=== PATIENT | female | born 1935 | race Caucasian/White ===

== ENCOUNTER 2018-01-20 09:57 | Inpatient (IN) | payer OTHER ==
[~2018-01-20] VITALS: Ht 160 cm; Wt 74.2 kg
[~2018-01-20 09:57] MED LIST: ASPIRIN EC325 MG PO; CARVEDILOL12.5 MG PO; CARVEDILOL3.125 MG PO; COLACE100 MG PO; ECOTRIN81 MG PO; FUROSEMIDE20 MG PO; HYDROXYCHLOROQ200 M1 PO; LISINOPRIL AND1 TA1 PO; LISINOPRIL20 MG PO; OMEPRAZOLE40 MG PO; PERCOCET 325 MG1 TA2 PO; PREDNISONE 20MG20 MG PO; SIMVASTATIN20 MG PO; TRAMADOL HCL50 MG PO; TYLENOL PM 5001 CAP PO; VITAMIN B122500 MCG PO
--- NOTE | 2018-01-20 10:37 | ED GENERAL ADULT ---
History of Present Illness General Chief Complaint: General Adult Stated Complaint: LOWER BACK PAIN, SOB, HEART RACING Source: patient, family Exam Limitations: poor historian Vital Signs & Intake/Output Vital Signs & Intake/Output Vital Signs Date Time Temp Pulse Resp B/P B/P Pulse O2 O2 Flow FiO2 Mean Ox Delivery Rate 01/22 1642 97.6 64 18 126/70 01/22 1446 97.6 64 18 126/70 95 01/22 0956 Room Air Room Air 01/22 0857 68 140/70 01/22 0800 94 Room Air 01/22 0707 97.9 64 20 140/70 94 Room Air ED Intake and Output 01/23 0000 01/22 1200 Intake Total 600 100 Output Total 300 500 Balance 300 -400 Intake, Oral 600 100 Number 1 Bowel Movements Output, Urine 300 500 Allergies Coded Allergies: Influenza Virus Vaccines (NO FLU SHOT DUE TO SULFA ALLERGY PER PT 01/15/16) Sulfa (Sulfonamide Antibiotics) (HIVES 10/11/17) Triage Note: PT TO ED C/O UPPER BACK PAIN X 1 WEEK. STATES WORSE THE LAST FEW DAYS. DENIES ANY CURRENT C/P. DENIES ANY INJURY. EKG DONE. Triage Nurses Notes Reviewed? yes Onset: Abrupt Duration: day(s): Timing: recent history HPI: 01/20/18 11:30 AM 82-year-old female presents to the emergency department complaining of severe low back pain over the past 3 days. She also admits to twinges of chest discomfort and difficulty breathing. Currently she is in severe low back pain, it is nonradiating, it is worse with motion. No abdominal pain. No fever. (Randolph Horner DO) Reconcile Medications Aspirin (Aspirin*) 81 MG TAB.CHEW 81 MG PO DAILY blood thinner Calcium Carbonate 500 MG CALCIUM (1,250 MG) TABLET 600 MG PO BID supplement Carvedilol 12.5 MG TABLET 1 TAB PO BID CHF (Reported) Cyclobenzaprine HCl 5 MG TABLET 1 TAB PO TIDPRN BACK PAIN (Reported) Docusate Sodium (Colace) 100 MG CAPSULE 1 CAP PO BID constipation (Reported) Ergocalciferol (Vitamin D2) (Vitamin D2) 50,000 UNIT CAPSULE 1 CAP PO QW supplement Levothyroxine Sodium (Synthroid) 50 MCG TABLET 1 TAB PO DAILY HYPOTHYROIDISM (Reported) Omeprazole 40 MG CAPSULE.DR 1 CAP PO DAILY GERD (Reported) Oxycodone HCl/Acetaminophen (Percocet 5-325 MG Tablet) 5 MG-325 MG TABLET 1 TAB PO TID PRN moderate pain Sacubitril/Valsartan (Entresto 49 MG-51 MG Tablet) 49 MG-51 MG TABLET 1 TAB PO BID CHF (Reported) Simvastatin (Zocor*) 20 MG TABLET 1 TAB PO QPM HYPERLIPIDEMIA (Reported) (Fredy URIBE,Amber) Past History Travel History Traveled to [place] past 21 day No Medical History Any Pertinent Medical History? 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 No (Randolph Horner DO) Review of Systems Review of Systems Constitutional: Denies: fever. EENTM: Reports: no symptoms. Respiratory: Reports: see HPI. Cardiovascular: Reports: see HPI. GI: Denies: abdominal pain. Genitourinary: Reports: no symptoms. Musculoskeletal: Reports: see HPI, back pain. Skin: Denies: rash. Neurological/Psychological: Reports: no symptoms. Hematologic/Endocrine: Reports: no symptoms. Immunologic/Allergic: Reports: no symptoms. (Randolph Horner DO) Physical Exam Physical Exam General Appearance: alert, awake, anxious, moderate distress Head: atraumatic, normal appearance Eyes: Bilateral: normal appearance, PERRL, EOMI. Ears, Nose, Throat: normal pharynx, normal ENT inspection Neck: normal inspection, supple, full range of motion Respiratory: normal breath sounds, chest non-tender, no respiratory distress Cardiovascular: regular rate/rhythm Peripheral Pulses: 4+ radial (R), 4+ radial (L) Gastrointestinal: soft, non-tender Back: normal inspection (states), tenderness over L4-L5 and L5-S1. Severe! Extremities: pedal edema Neurologic/Psych: no motor/sensory deficits, awake, alert, oriented x 3 Skin: intact, normal color, warm/dry Core Measures ACS in differential dx? Yes No ASA d/t pending work up CVA/TIA Diagnosis: No Sepsis Present: No Sepsis Focused Exam Completed? No (Randolph Horner DO) Progress Differential Diagnoses I considered the following diagnoses in my evaluation of the patient: [Pulmonary embolism, CHF, pneumonia, compression fracture, disc herniation, aortic dissection] Plan of Care: Orders Procedure Date/time Status Therapeutic Activities 01/22 UNK Complete Gait Training 01/22 UNK Complete Discharge Patient 01/22 UNK Active Laboratory Tests 01/22/18 0950: RBC 4.27, MCV 85.2, MCH 29.0, MCHC 34.0, RDW 13.1, MPV 9.0, Gran % 70.7, Lymphocytes % 19.8 L, Monocytes % 8.3, Eosinophils % 0.9, Basophils % 0.3, Absolute Granulocytes 4.0, Absolute Lymphocytes 1.1 L, Absolute Monocytes 0.5, Absolute Eosinophils 0.1, Absolute Basophils 0 01/22/18 0620: Anion Gap 8, Estimated GFR > 60, BUN/Creatinine Ratio 27.1 H 11:29 AM PATIETN SIGNED OUT TO ME BY DR HORNER PENDING LABS, D-DIMER, CT LUMBAR SPINE (Fredy URIBE,Amber) Initial ED EKG: NSR, nonspecific ST T wave chg, RBBB Prior EKG: changed (NON-SPECIFIC) (Randolph Horner DO) Diagnostic Imaging: Viewed by Me: CT Scan. Discussed w/RAD: CT Scan. Radiology Impression: PATIENT: MARIA BRIGHT PRESENT AGE: 82 PATIENT ACCOUNT NO: [id number] : 37 LOCATION: [facility] ORDERING PHYSICIAN: Randolph Horner DO SERVICE DATE: 01/20/18 EXAM TYPE: CAT - CT LUMB SPINE WO IV CONTRAST EXAMINATION: CT LUMBAR SPINE WITHOUT CONTRAST CLINICAL INFORMATION: Back pain. COMPARISON: CT performed 04/29/2016. TECHNIQUE: Helical non-contrast CT images were obtained through the lumbar spine and 1.25 and 2.5 mm axial reconstructions were reviewed along with sagittal and coronal MPRs. DLP: 943 mGy-cm FINDINGS: There is no acute fracture or subluxation. Slight dextroscoliosis of the lumbar spine centered at L3. Vertebral body heights are maintained. There is diffuse disc space narrowing with vacuum disc phenomenon throughout the lumbar spine. Diffuse endplate osteophytes are also present. Endplate sclerosis at L3-L4 is unchanged. Diffuse facet arthropathy. The sacrum is intact. The sacroiliac joints appear intact. Aortic calcifications noted. Retroaortic left renal vein. Colonic diverticulosis noted. SPINAL LEVELS: Evaluation of the spinal levels is limited on CT. There is severe spinal canal narrowing seen at the L3-L4 level associated with a disc bulge, facet arthropathy, and ligamentum flavum hypertrophy. There is also narrowing of the neural foramina, particularly on the left. This is likely similar to prior. There is also moderate spinal canal narrowing at the L4-L5 level. Mild neuroforaminal narrowing, particularly on the left. IMPRESSION: No acute osseous abnormality. Moderate to severe multilevel degenerative changes of the lumbar spine which are likely similar to prior. Evaluation of the disc levels is limited on CT, but again noted is severe spinal canal narrowing at the L3-L4 level with neuroforaminal narrowing, particularly on the left. DICTATED BY : Bob Aj MD DATE/TIME DICTATED:01/20/181235 SUPERINTENDENT SERVICE: TORY DATE/TIME TRANSCRIBED:01/20/181235 CONFIDENTIAL, DO NOT COPY WITHOUT APPROPRIATE AUTHORIZATION. <Electronically signed in Other Vendor System> SIGNED BY: Bob Aj MD 01/20/18 1243, PATIENT: MARIA BRIGHT PRESENT AGE: 82 PATIENT ACCOUNT NO: [id number] : 37 LOCATION: [facility] ORDERING PHYSICIAN: Amber Daniel MD SERVICE DATE: 01/20/18 EXAM TYPE: CAT - CT ABD & PELVIS W IV CONTRAST EXAMINATION: CT ABDOMEN AND PELVIS WITH CONTRAST CLINICAL INFORMATION: Abdominal pain, back pain. COMPARISON: 09/04/2014. CT lumbar spine from today. TECHNIQUE: Multidetector volumetric imaging was performed of the abdomen and pelvis following IV administration of 94 mL of Optiray 320 intravenous contrast. Sagittal and coronal reformatted images were obtained on the technologist's workstation. DLP: 885.33 mGy-cm FINDINGS: LUNG BASES: The visualized lung bases are unremarkable. LIVER, GALLBLADDER, AND BILIARY TREE: The liver is normal in size, shape, and attenuation. No focal hepatic lesion or biliary ductal dilatation is present. The gallbladder is not identified. This was not identified on the prior study of 2013 as well. This may be due to nondistention or surgical removal. CBD measures 1.3 cm proximally, tapering more distally. This previously measured 1.1 cm proximally by today's measurements. No radiodense choledocholithiasis is seen. PANCREAS: No discrete pancreatic lesion is seen. No inflammatory changes. No dilated pancreatic duct is seen. SPLEEN: Unremarkable. ADRENAL GLANDS: Stable 1.2 cm indeterminate left adrenal nodule. Right adrenal gland appears unremarkable. KIDNEYS AND URETERS: Multiple hypodense lesions in the bilateral kidneys. Majority of the lesions are too small to characterize by CT, overall stable from previous. There is a lesion in the midpole left kidney measuring 1.4 cm, increased in size as compared to previous, [place] 34, indeterminate. The 1 cm lesion in the lower pole left kidney, indeterminate, stable from previous. No renal calculi. No hydronephrosis. BLADDER: Unremarkable. GASTROINTESTINAL TRACT: There is gas and stool throughout the nondistended large bowel. Colonic diverticulosis present. No evidence of acute inflammatory changes to suggest colitis or diverticulitis. The stomach is underdistended, with luminal contents. Normal caliber small bowel loops. No evidence of bowel obstruction. The appendix is not identified. No pericecal inflammatory changes are seen. No free fluid or free air. ABDOMINAL WALL: No significant hernia is appreciated. LYMPH NODES: No pathologically enlarged lymph nodes identified in the abdomen or pelvis. VASCULAR: Abdominal aorta is of normal caliber. There is mild to moderate atherosclerotic vascular calcification present in the aorta and iliac vessels. Retrocaval aortic vein. PELVIC VISCERA: No abnormal findings. The uterus is not identified, atrophic or surgically absent. OSSEOUS STRUCTURES: Multilevel degenerative changes of the spine, better evaluated on the CT lumbar spine obtained today. Bilateral hip joint degeneration. Degenerative changes in bilateral SI joints. Mild dextroconvex scoliosis of the lumbar spine. No acute fractures identified. No suspicious lytic or blastic lesions are seen. IMPRESSION: 1. CBD is dilated measuring 1.3 cm proximally, tapering distally. No evidence of choledocholithiasis. The CBD previously measured 1.1 cm on the prior study of 2013. The gallbladder is not identified. The CBD dilatation could be related to prior cholecystectomy, if the gallbladder has been previously surgically removed. Correlate with surgical history. However, given the interval increase in size as compared to previous, recommend correlation with blood work, bilirubin levels. Further evaluation with MRCP as clinically warranted. 2. Stable indeterminate left adrenal nodule. 3. Multiple hypodense lesions in the bilateral kidneys, majority of which are too small to characterize, similar in size as compared to previous, probably reflecting cysts. There is a 1.4 cm hypodense lesion in the midpole left kidney, increased in size as compared to previous, which is indeterminate by CT measurements. Further characterization with ultrasound as clinically warranted. 4. Diverticulosis. No evidence of diverticulitis. 5. No acute findings otherwise identified in the abdomen or pelvis. DICTATED BY: Gadiel Grewal MD DATE/TIME DICTATED:01/20/181408 SUPERINTENDENT SERVICE:TORY DATE/TIME TRANSCRIBED:01/20/181408 CONFIDENTIAL, DO NOT COPY WITHOUT APPROPRIATE AUTHORIZATION. <Electronically signed in Other Vendor System> SIGNED BY: Gadiel Grewal MD 01/20/18 1453 CXR Impression: PATIENT: MARIA BRIGHT PRESENT AGE: 82 PATIENT ACCOUNT NO: [id number] : 37 LOCATION: [facility] ORDERING PHYSICIAN: Xander YAO SERVICE DATE: 01/20/18 EXAM TYPE: RAD - XRY-PORTABLE CHEST XRAY EXAMINATION: XR PORTABLE CHEST CLINICAL INFORMATION: Shortness of breath. COMPARISON: 10/26/2015 TECHNIQUE: Portable frontal view of the chest was obtained. FINDINGS: Cardiac lead overlies the chest. The lungs are well expanded. There is no focal consolidation, edema, or effusion. No pneumothorax. The cardiomediastinal silhouette is within normal limits of size with a tortuous aorta. No acute osseous abnormality. IMPRESSION: No acute pulmonary findings. DICTATED BY: Jean Marie URIBE,Bob DATE/TIME DICTATED:01/20/181114 SUPERINTENDENT SERVICE:TORY DATE/TIME TRANSCRIBED:01/20/181114 CONFIDENTIAL, DO NOT COPY WITHOUT APPROPRIATE AUTHORIZATION. <Electronically signed in Other Vendor System> SIGNED BY: Jean Marie URIBE,Bob 01/20/18 1119 (Fredy URIBE,Amber) Departure Departure Disposition: STILL A PATIENT Condition: Stable Referrals: Ciro URIBE,Burke Hastings (PCP/Family) Departure Forms: Customer Survey General Discharge Information Comments 01/20/18 11:30 AM The patient was signed out to Dr. Daniel at 11:30 AM. (Randolph Horner DO) Departure Clinical Impression Primary Impression: Hypocalcemia Secondary Impressions: Acute low back pain, Chest pain at rest, Hypokalemia Prescriptions: Current Visit Scripts Aspirin (Aspirin*) 81 MG PO DAILY #30 TAB Calcium Carbonate 600 MG PO BID #60 TAB Ergocalciferol (Vitamin D2) (Vitamin D2) 1 CAP PO QW #7 CAP Oxycodone HCl/Acetaminophen (Percocet 5-325 MG Tablet) 1 TAB PO TID PRN moderate pain #15 TAB Admission Note Spoke With: Joshua URIBE,Chay (Amber Daniel MD) Critical Care Note Critical Care Note Critical Care Time: 30-74 min (Randolph Horner DO)
--- NOTE | 2018-01-20 11:19 | RADIOLOGY REPORT ---
EXAMINATION: XR PORTABLE CHEST CLINICAL INFORMATION: Shortness of breath. COMPARISON: 10/26/2015 TECHNIQUE: Portable frontal view of the chest was obtained. FINDINGS: Cardiac lead overlies the chest. The lungs are well expanded. There is no focal consolidation, edema, or effusion. No pneumothorax. The cardiomediastinal silhouette is within normal limits of size with a tortuous aorta. No acute osseous abnormality. IMPRESSION: No acute pulmonary findings.
[2018-01-20 11:45] LABS: ABSOLUTE BASOPHIL COUNT 0 /CUMM (0.0-0.2); ABSOLUTE EOSINOPHIL COUNT 0 /CUMM (0.0-0.7); ABSOLUTE GRANULOCYTE CT 5.5 /CUMM (1.4-6.5); ABSOLUTE LYMPH COUNT 1.4 /CUMM (1.2-3.4); ABSOLUTE MONOCYTE COUNT 0.5 /CUMM (0.10-0.60); BASOPHIL % 0 % (0.0-2.0); EOSINOPHIL % 0.6 % (0-5); GRANULOCYTE % 74.2 % (42.2-75.2); HEMATOCRIT 37.6 % (37-47); MEAN CORPUSCULAR HGB 28.9 PG (27.0-31.0); MEAN CORPUSCULAR HGB CONC 34.1 G/DL (33.0-37.0); MEAN CORPUSCULAR VOLUME 84.8 FL (81.0-99.0); MEAN PLATELET VOLUME 8.8 FL (7.4-10.4); PLATELET COUNT 205 /CUMM (130-400); RBC DISTRIBUTION WIDTH 13.1 % (11.5-14.5); RED BLOOD CELL CT 4.44 /CUMM (4.20-5.40); WHITE BLOOD CELL COUNT 7.4 /CUMM (4.8-10.8)
--- NOTE | 2018-01-20 12:43 | CT SCAN REPORT ---
EXAMINATION: CT LUMBAR SPINE WITHOUT CONTRAST CLINICAL INFORMATION: Back pain. COMPARISON: CT performed 04/29/2016. TECHNIQUE: Helical non-contrast CT images were obtained through the lumbar spine and 1.25 and 2.5 mm axial reconstructions were reviewed along with sagittal and coronal MPRs. DLP: 943 mGy-cm FINDINGS: There is no acute fracture or subluxation. Slight dextroscoliosis of the lumbar spine centered at L3. Vertebral body heights are maintained. There is diffuse disc space narrowing with vacuum disc phenomenon throughout the lumbar spine. Diffuse endplate osteophytes are also present. Endplate sclerosis at L3-L4 is unchanged. Diffuse facet arthropathy. The sacrum is intact. The sacroiliac joints appear intact. Aortic calcifications noted. Retroaortic left renal vein. Colonic diverticulosis noted. SPINAL LEVELS: Evaluation of the spinal levels is limited on CT. There is severe spinal canal narrowing seen at the L3-L4 level associated with a disc bulge, facet arthropathy, and ligamentum flavum hypertrophy. There is also narrowing of the neural foramina, particularly on the left. This is likely similar to prior. There is also moderate spinal canal narrowing at the L4-L5 level. Mild neuroforaminal narrowing, particularly on the left. IMPRESSION: No acute osseous abnormality. Moderate to severe multilevel degenerative changes of the lumbar spine which are likely similar to prior. Evaluation of the disc levels is limited on CT, but again noted is severe spinal canal narrowing at the L3-L4 level with neuroforaminal narrowing, particularly on the left.
--- NOTE | 2018-01-20 14:26 | History & Physical ---
Kim URIBE,Anjana 01/20/18 1426: General Information and HPI MD Statement: I have seen and personally examined MARIA BRIGHT and documented this H&P. The patient is a 82 year old F who presented with a patient stated chief complaint of [chest pain]. Source of Information: patient, old records Exam Limitations: poor historian History of Present Illness: 82 years old female with past medical history of nonischemic cardiomyopathy, bifascicular block, systolic compensated CHF, hypertension, thyroid cancer status post hemithyroidectomy , gastroesophageal reflux disease, spinal stenosis and associated chronic lower back pain/neuropathy who presented complaining of to the emergency department complaining of severe right sided lower back pain for which the patient used to take tramadol which was initially helping with her pain however she reports that the pain got progressively worse over the past 3 days and is less responding to the pain meds. The patient has long history of chronic low back pain for which she was admitted back in 2016. Patient also reports that in the ED she started experiencing chest pain 10/10 in severity which was burning epigastric and radiates to her mid back, patient received IV morphine which caused the pain to decrease to 8/10. Patient reports that she had intermittent chest pain over the past few month for which she saw her steel placer Dr. Swift and he advised her to relax and to come to the ED if it gets progressively worse Patient also reports exertional shortness of breath when she walks 56 steps. In addition she reports lightheadedness which lasted 34 minutes this morning which improved when she sat down. She denies any fever, chills, nausea, vomiting, diarrhea or constipation. She also denies any fecal or urinary incontinence. The patient is dependent on her for her activities of daily living due to bilateral neuropathy in her upper extremity up to the level of shoulder. She uses a walker to ambulate Patient was admitted back on 04/26 for chest pain and back pain, patient was found to have PVCs and after discharge she was following up with Dr. Link for possible AICD placement however she was started on Entresto and didn't need AICD as per the patient, will get the records from Dr. Link. Allergies/Medications Allergies: Coded Allergies: Influenza Virus Vaccines (NO FLU SHOT DUE TO SULFA ALLERGY PER PT 01/15/16) Sulfa (Sulfonamide Antibiotics) (HIVES 10/11/17) Past History Travel History Traveled to [place] past 21 day No Medical History Neurological: NEUROPATHY HANDS EENT: NONE Cardiovascular: cardiomyopathy, CHF, hypertension, BRADYCARDIA "IRREGULAR RHYTHM ", bifascicular block Respiratory: COPD Gastrointestinal: GERD Hepatic: NONE Renal: NONE Musculoskeletal: OSTEROARTHRITIS DEGENERATIVE DISC DISEASE Psychiatric: NONE Endocrine: THYROIDECTOMY Blood Disorders: NONE Cancer(s): thyroid cancer PULMONARY FUNCTION TECHNOLOGIST/Reproductive: NONE History of MRSA: No History of VRE: No History of CDIFF: No Surgical History Surgical History: appendectomy, cholecystectomy, , knee replacement ( RIGHT), right thyroid lobe and isthmus ectomy NEURO OPERATION 194 Past Family/Social History Psychosocial History Services at Home: None ETOH Use: denies use Illicit Drug Use: denies illicit drug use Review of Systems Review of Systems Constitutional: Denies: chills, diaphoresis, fever, malaise, weakness. Cardiovascular: Reports: chest pain. Denies: edema, orthopena, palpitations, peripheral edema, syncope. Respiratory: Reports: short of breath. Denies: cough, hemoptysis, orthopnea, sputum production, stridor, wheezing. GI: Reports: bloating. Denies: constipation, diarrhea, distention, bowel incontinence, melena, nausea. Genitourinary: Denies: no symptoms. Musculoskeletal: Reports: back pain, joint pain, muscle pain. Skin: Denies: no symptoms. Neurological/Psychological: Denies: no symptoms. Hematologic/Endocrine: Denies: no symptoms. Immunologic/Allergic: Denies: no symptoms. Exam & Diagnostic Data Last 24 Hrs of Vital Signs/I&O Vital Signs Date Time Temp Pulse Resp B/P B/P Pulse O2 O2 Flow FiO2 Mean Ox Delivery Rate 01/20 1436 97.0 88 18 156/90 96 Room Air 01/20 1400 97.0 68 120/70 01/20 1247 97.8 66 20 138/90 96 Room Air 01/20 1008 98.0 58 20 147/78 95 Room Air Intake & Output 01/20 1600 01/20 0800 01/20 0000 Intake Total Output Total Balance Patient 160 lb Weight Weight Reported by Patient Measurement Method Physical Exam General Appearance Alert, Oriented X3, Cooperative, No Acute Distress HEENT Atraumatic, PERRLA, EOMI, Mucous Membr. moist/pink Neck Supple, No JVD Cardiovascular Normal S1, Normal S2 Lungs Clear to Auscultation Abdomen Normal Bowel Sounds, Soft, No Tenderness Neurological Normal Speech, Strength at 5/5 X4 Ext, Normal Tone, Sensation Intact, Cranial Nerves 3-12 NL Extremities No Clubbing, No Cyanosis, No Edema Last 24 Hrs of Labs/Gray: Laboratory Tests 01/20/18 1350: Troponin I 0.02 01/20/18 1125: Anion Gap 6, Estimated GFR > 60, BUN/Creatinine Ratio 38.0 H, Glucose 79, Calcium 6.7 L, Total Bilirubin 0.3, AST 8 L, ALT 17, Alkaline Phosphatase 53, Troponin I < 0.01, Kbn-V-Vjfezwurzca Pept 865 H, Total Protein 4.4 L, Albumin 2.3 L, Globulin 2.1, Albumin/Globulin Ratio 1.1, D-Dimer High Sensitivty 268 H , CBC w Diff NO MAN DIFF REQ, RBC 4.44, MCV 84.8, MCH 28.9, MCHC 34.1, RDW 13.1, MPV 8.8, Gran % 74.2, Lymphocytes % 19.0 L, Monocytes % 6.2, Eosinophils % 0.6, Basophils % 0, Absolute Granulocytes 5.5, Absolute Lymphocytes 1.4, Absolute Monocytes 0.5, Absolute Eosinophils 0, Absolute Basophils 0 Diagnostic Data EKG Results 59, sinus rhythm, right bundle branch block, QRS 160, QTc 476, no significant ST CXR Results No acute changes Other Results CT abdomen and pelvis: 1. CBD is dilated measuring 1.3 cm proximally, tapering distally. No evidence of choledocholithiasis. The CBD previously measured 1.1 cm on the prior study of 2013. The gallbladder is not identified. The CBD dilatation could be related to prior cholecystectomy, if the gallbladder has been previously surgically removed. Correlate with surgical history. However, given the interval increase in size as compared to previous, recommend correlation with blood work, bilirubin levels. Further evaluation with MRCP as clinically warranted. 2. Stable indeterminate left adrenal nodule. 3. Multiple hypodense lesions in the bilateral kidneys, majority of which are too small to characterize, similar in size as compared to previous, probably reflecting cysts. There is a 1.4 cm hypodense lesion in the midpole left kidney, increased in size as compared to previous, which is indeterminate by CT measurements. Further characterization with ultrasound as clinically warranted 4. Diverticulosis. No evidence of diverticulitis. 5. No acute findings otherwise identified in the abdomen or pelvis. CT lumbar spine: No acute osseous abnormality. Moderate to severe multilevel degenerative changes of the lumbar spine which are likely similar to prior. Evaluation of the disc levels is limited on CT, but again noted is severe spinal canal narrowing at the L3-L4 level with neuroforaminal narrowing, particularly on the left. Assessment/Plan Assessment: 82 years old female with past medical history of nonischemic cardiomyopathy, bifascicular block, systolic compensated CHF, hypertension, thyroid cancer status post hemithyroidectomy (not on any medications), gastroesophageal reflux disease, spinal stenosis and associated chronic lower back pain/neuropathy who presented complaining of to the emergency department complaining of severe right sided lower back pain for which the patient used to take tramadol which was initially helping with her pain however she reports that the pain got progressively worse over the past 3 days. In addition she endorses chest pain 8/10 in severity which did not improve with IV morphine, given her cardiac history that the chest pain raise concern for ACS Vital signs on admission: Blood pressure 147/78, pulse 58, temperature 98, respiratory 20, pulse ox 95 on room air Labs on admission: CBCT was normal with WBC 7.4, hemoglobin 12.8, hematocrit 37.6, platelet 205, sodium 140, potassium 3.1, BUN 19, creatinine 0.5, Pro- BNP 865, d-dimer 268, Problem list: Chronic progressive back pain, bilateral hip pain most likely due to osteo- arthritis angina Right bundle branch block Abdominal pain Hypocalcemia/ mild hypokalemia History of hypertension History of hyperlipidemia History of nonischemic cardiomyopathy Plan: Admit to telemetry floor Rule out ACS with serial troponins and EKG Cardiology consult appreciated Continue home dose of carvedilol 12.5 p.o. twice daily Pain controlled with morphine, Percocet, Tylenol Flexeril 5 mg p.o. 3 times daily as needed for pain Continue home dose of omeprazole 40 mg p.o. daily Levothyroxine 50 mcg daily Start calcium and vitamin D supplement Close monitoring of I's and O's Close monitoring of vital signs Close monitoring of BEP Monitor electrolytes and replete accordingly If abdominal pain persist we will consider GI consultation PT evaluation Patient is full code DVT prophylaxis with subcutaneous heparin Heart healthy diet As Ranked By This Provider Problem List: 1. Chest pain 2. Back pain Core Measures/Misc (07/28) Acute Coronary Syndrome ACS Diagnosis: No Last Known EF % 35 Congestive Heart Failure Congestive Heart Failure Diagnosis No Cerebrovascular Accident CVA/TIA Diagnosis: No VTE (View Protocol) VTE Risk Factors Age>40 No Mechanical VTE Prophylaxis d/t N/A MechProphylax Ordered No VTE Pharm Prophylaxis d/t NA PharmProphylax ordered Sepsis (View protocol) Sepsis Present: No Ngoc Sommers MD 01/20/18 1435: General Information and HPI Allergies/Medications Home Med list Aspirin (Aspirin*) 81 MG TAB.CHEW 81 MG PO DAILY blood thinner Calcium Carbonate 500 MG CALCIUM (1,250 MG) TABLET 600 MG PO BID supplement Carvedilol 12.5 MG TABLET 1 TAB PO BID CHF (Reported) Cyclobenzaprine HCl 5 MG TABLET 1 TAB PO TIDPRN BACK PAIN (Reported) Docusate Sodium (Colace) 100 MG CAPSULE 1 CAP PO BID constipation (Reported) Ergocalciferol (Vitamin D2) (Vitamin D2) 50,000 UNIT CAPSULE 1 CAP PO QW supplement Levothyroxine Sodium (Synthroid) 50 MCG TABLET 1 TAB PO DAILY HYPOTHYROIDISM (Reported) Omeprazole 40 MG CAPSULE.DR 1 CAP PO DAILY GERD (Reported) Oxycodone HCl/Acetaminophen (Percocet 5-325 MG Tablet) 5 MG-325 MG TABLET 1 TAB PO TID PRN moderate pain Sacubitril/Valsartan (Entresto 49 MG-51 MG Tablet) 49 MG-51 MG TABLET 1 TAB PO BID CHF (Reported) Simvastatin (Zocor*) 20 MG TABLET 1 TAB PO QPM HYPERLIPIDEMIA (Reported) Resident Review Statement Resident Statement: examined this patient, discussed with summer internship, agreed with summer internship Other Findings: Patient is an 82-year-old female presented with chief complaints of gradually progressive right-sided back pain. According to the patient is at baseline she always gets the pain in her back and have difficulty in getting out of the bed. She uses tramadol as a baseline. Since last 7 days the back pain has been worse and tramadol is not effective. In the morning she had severe blackening in front of her eyes along with dizziness secondary to the pain so she came here for further evaluation and management. When she came into the emergency department she started having pain in her belly more in the right upper part of the abdomen. The pain medication given in the ED was not helpful. She denies any nausea, vomiting, chest pain, constipation, diarrhea, urinary incontinence, incontinence of stool, radiation of pain in both of the legs, trauma, fall. Of note she always gets short of breath after walking 4 or 5 steps.She was recently evaluated by Dr. Rich Swift and all the cardiac workup was normal. She followed Dr. Link, and was started on Entresto since last 1 year. 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 Blood workup -WBC 7.4, hemoglobin 12.8, hematocrit 37.6, platelet count 205, sodium 140, potassium 3.1, chloride 112, carbon x-ray 21, anion gap 6, BUN 9, creatinine 0.5, GFR 60, glucose 79, serum calcium 6.7(corrected calcium 8.1), total bilirubin 0.8, AST 8, ALT 17, alkaline phosphatase 53, troponin I 0.01, 0.02, proBNP 865, albumin 2.3, d-dimer 268. Chest x-ray -no any cardiopulmonary abnormality CT of the lumbar spine -severe spinal canal narrowing at the L3-L4 level with neuroforaminal narrowing, particularly on the left. CT abdomen pelvis - 1. CBD is dilated measuring 1.3 cm proximally, tapering distally(previously measured 1.1 cm 2013). No evidence of choledocholithiasis. 2. Stable indeterminate left adrenal nodule. 3. Multiple hypodense lesions in the bilateral kidneys, probably reflecting cysts. There is a 1.4 cm hypodense lesion in the midpole left kidney, increased in size as compared to previous, which is indeterminate by CT measurements. Further characterization with ultrasound as clinically warranted. 4. Diverticulosis. No evidence of diverticulitis. Assessment and plan - Patient primarily presented with lower back pain and started having upper abdominal pain while in ED. We first set of troponin and EKG was negative. She had coronary artery disease risk factors so we will admit patient to telemetry floor and will do serial troponins and EKG to rule out acute coronary syndrome. We will give pain medication according to the pain scale. On blood work up she found to have hypocalcemia we will evaluate the etiology of hypercalcemia bitewing magnesium, vitamin D, PTH. On blood work of vitamin D was very low be supplemented vitamin D 50,000 international units once again continue to supplement for 50,000 units weekly for total 8 weeks. It seems she has osteoporosis and she need outpatient workup including DEXA scan. CT scan was showing degenerative joint disease of both hip , she should have outpatient orthopedic evaluation? For joint replacement. We will start physical therapy as an inpatient and talk to case management for outpatient physical therapy. Pain in the abdomen - * we will observe the patient to telemetry * We will do serial troponins and EKG to rule out acute coronary syndrome * pain medication according to the pain scale * We will consider GI evaluation if needed -right upper quadrant ultrasound * We will repeat the LFT Pain in the bilateral hip joints * We will start patient on pain medication according to the pain scale -mild pain acetaminophen, moderate pain Percocet, severe pain IV morphine * PT evaluation Hypocalcemia * We will repeat the serum calcium and albumin tomorrow * Corrected serum calcium was towards the lower side * We will start patient on calcium and vitamin D supplementation Hypokalemia * We will supplement potassium as needed * We will follow the BEP as needed Chronic medical condition -hypertension, hyperlipidemia, hypothyroidism * We will continue all medications as before. CODE STATUS -full code Diet -heart healthy diet DVT prophylaxis -PAULETTE/heparin Sheryl Jravis 01/20/18 1819: Attending MD Review Statement Attending Statement Attending MD Statement: examined this patient, discuss w/resident/PA/STEEL RULE INSPECTOR, agreed w/resident/PA/STEEL RULE INSPECTOR, reviewed EMR data (avail) Attending Assessment/Plan: Pt seen and examined in ER. pt presented with worsening of rt lower back pain and on exam has tenderness to palpation. Pt had a CT abdomen and lumbar spine CT which did not show any pathology suggesting the cause of her pain. Her pain appears more musculoskeletal and we will put her on pain meds and see how she does and will get a PT consult. Pt also complained of some chest pain for which she will be admitted to tele and we will do serial trop and will inform Dr Gallegos from cardiology of her admission.
--- NOTE | 2018-01-20 14:53 | CT SCAN REPORT ---
EXAMINATION: CT ABDOMEN AND PELVIS WITH CONTRAST CLINICAL INFORMATION: Abdominal pain, back pain. COMPARISON: 09/04/2014. CT lumbar spine from today. TECHNIQUE: Multidetector volumetric imaging was performed of the abdomen and pelvis following IV administration of 94 mL of Optiray 320 intravenous contrast. Sagittal and coronal reformatted images were obtained on the technologist's workstation. DLP: 885.33 mGy-cm FINDINGS: LUNG BASES: The visualized lung bases are unremarkable. LIVER, GALLBLADDER, AND BILIARY TREE: The liver is normal in size, shape, and attenuation. No focal hepatic lesion or biliary ductal dilatation is present. The gallbladder is not identified. This was not identified on the prior study of 2013 as well. This may be due to nondistention or surgical removal. CBD measures 1.3 cm proximally, tapering more distally. This previously measured 1.1 cm proximally by today's measurements. No radiodense choledocholithiasis is seen. PANCREAS: No discrete pancreatic lesion is seen. No inflammatory changes. No dilated pancreatic duct is seen. SPLEEN: Unremarkable. ADRENAL GLANDS: Stable 1.2 cm indeterminate left adrenal nodule. Right adrenal gland appears unremarkable. KIDNEYS AND URETERS: Multiple hypodense lesions in the bilateral kidneys. Majority of the lesions are too small to characterize by CT, overall stable from previous. There is a lesion in the midpole left kidney measuring 1.4 cm, increased in size as compared to previous, [place] 34, indeterminate. The 1 cm lesion in the lower pole left kidney, indeterminate, stable from previous. No renal calculi. No hydronephrosis. BLADDER: Unremarkable. GASTROINTESTINAL TRACT: There is gas and stool throughout the nondistended large bowel. Colonic diverticulosis present. No evidence of acute inflammatory changes to suggest colitis or diverticulitis. The stomach is underdistended, with luminal contents. Normal caliber small bowel loops. No evidence of bowel obstruction. The appendix is not identified. No pericecal inflammatory changes are seen. No free fluid or free air. ABDOMINAL WALL: No significant hernia is appreciated. LYMPH NODES: No pathologically enlarged lymph nodes identified in the abdomen or pelvis. VASCULAR: Abdominal aorta is of normal caliber. There is mild to moderate atherosclerotic vascular calcification present in the aorta and iliac vessels. Retrocaval aortic vein. PELVIC VISCERA: No abnormal findings. The uterus is not identified, atrophic or surgically absent. OSSEOUS STRUCTURES: Multilevel degenerative changes of the spine, better evaluated on the CT lumbar spine obtained today. Bilateral hip joint degeneration. Degenerative changes in bilateral SI joints. Mild dextroconvex scoliosis of the lumbar spine. No acute fractures identified. No suspicious lytic or blastic lesions are seen. IMPRESSION: 1. CBD is dilated measuring 1.3 cm proximally, tapering distally. No evidence of choledocholithiasis. The CBD previously measured 1.1 cm on the prior study of 2013. The gallbladder is not identified. The CBD dilatation could be related to prior cholecystectomy, if the gallbladder has been previously surgically removed. Correlate with surgical history. However, given the interval increase in size as compared to previous, recommend correlation with blood work, bilirubin levels. Further evaluation with MRCP as clinically warranted. 2. Stable indeterminate left adrenal nodule. 3. Multiple hypodense lesions in the bilateral kidneys, majority of which are too small to characterize, similar in size as compared to previous, probably reflecting cysts. There is a 1.4 cm hypodense lesion in the midpole left kidney, increased in size as compared to previous, which is indeterminate by CT measurements. Further characterization with ultrasound as clinically warranted. 4. Diverticulosis. No evidence of diverticulitis. 5. No acute findings otherwise identified in the abdomen or pelvis.
[2018-01-20] MEDS ORDERED: OMEPRAZOLE40 M1 PO (15:59)
[2018-01-20] MEDS ORDERED: CARVEDILOL12.5 M1 PO (15:59)
[2018-01-20] MEDS ORDERED: SYNTHROID50 MCG PO (16:00)
[2018-01-20] MEDS ORDERED: CYCLOBENZAPRINE5 M2 PO (16:00)
[2018-01-20] MEDS ORDERED: TRAMADOL HCL50 M1 PO (16:01)
[2018-01-20] MEDS ORDERED: ENTRESTO 49 MG1 EACH PO (16:02)
[2018-01-20] MEDS ORDERED: ZOCOR20 M1 PO (16:02)
[2018-01-20] MEDS ORDERED: COLACE100 M1 PO (17:17)
--- NOTE | 2018-01-20 17:22 | PN- Student ---
Subjective Subjective: *Full H&P* ID: Ms. Liya Oneal is an 82 year old female, born on [birth year], with PMHx of Osteoarthritis & spinal stenosis with associated chronic lower back pain , neuropathy, non-ischemic cardiomopathy & PVC's, compensated systolic CHF, GERD , & thyroid cancer s/p partial thyroidectomy of right lobe & isthmus; presented to the [place] ED on 01/20/18. CC: Very severe right sided lower back pain for the last three days, as well as intermittent chest discomfort and shortness of breath for one day. HPI: Patient states that the reason she came in to the ED is due to her increasingly severe lower back pain which began about three days ago. Ms. Oneal reports taking tramadol three times to alleviate the pain, but states that it did not help. The pain continues to get progressively worse, to the point where this morning, when she was getting up to go to the bathroom, the patient states it became so severe, that she became lightheaded and couldn't see clearly. Ms. Oneal states that she immediately sat down at this point and waited for it to get a little better, after 3-4 minutes the lightheadedness subsided & she told her who then brought her in to the [place] ED. Ms. Oneal states that the pain is localized mostly in her lower back area "around where the waisline of your pants sit" and that it is worse on the right side but does not radiate. She says it is sharp and very severe, rating it 10/10 at the time of arrival and 8/10 after receiving morphine in the ED. She descibes this particular episode of back pain as constant, saying that it has not resolved since it started, but that it does fluctuate in severity, worsening when she moves around and improvinging slightly with rest. The patient also reports that she has had similar episodes of back pain in the past, descibing them as "attacks" and states that this is a chronic issue, but that the pain has never been this bad. The patient also complains of chest pain that started in the ED, is 10/10 in severity, feels like burning in the mid-epigastric region, radiates to her back, and is associated with a "twingeing" pain type sensation under her left breast. This pain has been intermittent over the past few months and she has informed her retail manager in training, Dr. Zuniga, about it, whom she reports told her it could be associated with stress, so she should relax and that it may be due to acid. The patient states that she has had similar episodes in the past, with instances where the pain has woken her up at night, but that it usually subsides on it's own. She was found to have PVC's during a previous admission to [facility] in April 2016, during which she complained of chest pain as well, & was reffered for out- patient follow-up with Dr. Link for possible AICD placement but was started on Entresto instead. Ms. Oneal also reports exertional dyspnea, stating that she uses a walker to help her ambulate but that she is not able to go further than 5 or 6 steps at a time without becoming short of breath. She also reports discomfort in the right side of her neck, but denies any other pain, fever, chills, nausea, vomiting, diarrhea, although she does report constipation for the last two days. She also denies any fecal or urinary incontinence, changes in her diet, or eating habits. The patient is dependent on a walker for ambulation & relies on her for activities of daily living due to bilateral neuropathy in her hands and upper extremities. PMHx: - Osteoarthritis & spinal stenosis (chronic back pain & lower extremity weakness , dependent on walker) - Non-ischemic cardiomopathy & PVC's (as per medical records from April 2016) - Compensated systolic CHF (April 2016) - Irregular Rhythm (possibly a.Fib, as per medical records from August 2015) - Cardiac stent in 2007 (as per medical records from August 2015) - Bifascicular block (as per medical records from April 2016) - Bradycardia - HTN - HLD - GERD - Diverticulosis - Thyroid cancer s/p partial thyroidectomy of right lobe & isthmus in 2014 - Neuropathy oh the hands (secondary to carpal tunnel repair surgery five years ago) PSHx: - Appendectomy when 19 years old - for daughters at 44 - Right knee replacement at 72 years old - Partial thyroidectomy of right lobe & isthmus in 2014 - Cardiac stent placement in 2007 - Calcified cyst removal from right breast in 1984 - Cataract surgery 3 months ago - Carpal tunnel repain 4-5 years ago Home Medications: - Carvedilol 12.5mg - Cyclobenaprine 5mg - Colace 100mg - Levothyroxine 50mcg - Omeprazole 40mg - Entresto 50mg - Escitolopram 5mg - Simvastatin 20mg - Tramadol 50mg - Aspirin 81mg Allergies: - Sulpha Drugs (cause rash) FHx: - Father passed at 80 due to HI s/p valve replacement - Mother passed at 85 due to HI - Sister passed at 70 due to lung cancer SHx: - Past smoker with 20 pack years, quit at 44 - Drinks occassionaly, mostly wine - No recreational drug use - Has 1 biological daughter and 1 adopted daughter - and lives along with her in their mobile home - Completely dependent on her for activites of daily living - Dependent on walker for ambulation ROS: - Constitutional: some generalized fatigue & lightheadedness; denies fevers, chills, or nausea & vomiting - HEENT: Endorses tightness/discomfort on right side of neck; denies vertigo, rhinorrhea, congestion, sore throat, hearing loss, diplopia, - CV: Endorses chest pain; denies any peripheral edema, orthopnea, PND, or pallpitations - Respiratory: Endorses exertional dyspnes and SOB; denies any wheezing, cough, hemoptysis - GI: Endorses some abdominal pain and constipation; denies any diarrhea, hematochezia, change in frequency or consistency - Urinary: denies dysuria/polyuria, hematuria, hesitancy, urgency - : denies discharge, sores, pain, hernias - MSK: endorses severe lowerback pain, joint oain, and muscle pain; denies any weakness, swelling. - Neurologic: some balance issues & unsteadiness in gait, neuropathy in hands and bilateral upper extremities; denies any loss of sensation, tinging, or loss of consciousness - Skin: denies rashes, bruises - Psych: denies depressed or anxious mood, change in mood Otherwise as indicated in HPI Objective Objective: Last 24 Hrs of Vital Signs/I&O Vital Signs Date Time Temp Pulse Resp B/P B/P Pulse O2 O2 Flow FiO2 Mean Ox Delivery Rate 01/20 1436 97.0 88 18 156/90 96 Room Air 01/20 1400 97.0 68 120/70 01/20 1247 97.8 66 20 138/90 96 Room Air 01/20 1008 98.0 58 20 147/78 95 Room Air Intake & Output 01/20 1600 01/20 0800 01/20 0000 Intake Total Output Total Balance Patient 160 lb Weight Weight Reported by Patient Measurement Method Physical Exam: - General: Pleasant, positive affect, cooperative, A&Ox3, appropriate dress, poor oral hygeine, appears to be in no acute distress. - Head: Normocephalic, without any visible scars, deformities, or trauma - EENT: Pupils both equally round and reactive to light, no signs of jaundice, or conjunctival injection. Normal hearing bilaterally, no sinus pain or congestion, discharge or discoluration. No throat pain. - Neck: Tightness appreciated in muscles on right side of the neck, no palpable lymph nodes. - Cardiac: Normal S1 & S1 with regular rate & rhythm, no audible murmurs, rubs, or gallops. no elevated JVD or change with hepatojugular reflex, PMI not appreciated. Distal pulses 2+ bilaterally. - Lungs: Auscultation of the posterior chest wall reveals normal breath sounds throughout bilateral lung danielle, no use of accessory muscles of repiration, normal chest wall movements with breathing. - GI: Normal bowel sounds throughout, abdomen soft, but slightly tender on palpation of RUQ, with no guarding or distension. - MSK: Severe tenderness on palpitation of the lower back - Extremeties: Active flexion of the hip elicits severe pain on the left side more so than the right, severe tenderness on palpation of the pelvic griddle & bilateral wakness of upeer extremities; No edema/swelling, no tenderness on palpation, no clubbing or cyanosis. - Neuro: CN's III-XII grossly intact, sensation intact Results Results: Laboratory Tests 01/20/18 1350: Troponin I 0.02 01/20/18 1125: Anion Gap 6, Estimated GFR > 60, BUN/Creatinine Ratio 38.0 H, Glucose 79, Calcium 6.7 L, Total Bilirubin 0.3, AST 8 L, ALT 17, Alkaline Phosphatase 53, Troponin I < 0.01, Zph-U-Dvphnamyfdz Pept 865 H, Total Protein 4.4 L, Albumin 2.3 L, Globulin 2.1, Albumin/Globulin Ratio 1.1, D-Dimer High Sensitivty 268 H , CBC w Diff NO MAN DIFF REQ, RBC 4.44, MCV 84.8, MCH 28.9, MCHC 34.1, RDW 13.1, MPV 8.8, Gran % 74.2, Lymphocytes % 19.0 L, Monocytes % 6.2, Eosinophils % 0.6, Basophils % 0, Absolute Granulocytes 5.5, Absolute Lymphocytes 1.4, Absolute Monocytes 0.5, Absolute Eosinophils 0, Absolute Basophils 0 Diagnostic Data EKG Results 59, sinus rhythm, right bundle branch block, QRS 160, QTc 476, no significant ST CXR Results No acute changes Other Results CT abdomen and pelvis: 1. CBD is dilated measuring 1.3 cm proximally, tapering distally. No evidence of choledocholithiasis. The CBD previously measured 1.1 cm on the prior study of 2013. The gallbladder is not identified. The CBD dilatation could be related to prior cholecystectomy, if the gallbladder has been previously surgically removed. Correlate with surgical history. However, given the interval increase in size as compared to previous, recommend correlation with blood work, bilirubin levels. Further evaluation with MRCP as clinically warranted. 2. Stable indeterminate left adrenal nodule. 3. Multiple hypodense lesions in the bilateral kidneys, majority of which are too small to characterize, similar in size as compared to previous, probably reflecting cysts. There is a 1.4 cm hypodense lesion in the midpole left kidney, increased in size as compared to previous, which is indeterminate by CT measurements. Further characterization with ultrasound as clinically warranted 4. Diverticulosis. No evidence of diverticulitis. 5. No acute findings otherwise identified in the abdomen or pelvis. CT lumbar spine: No acute osseous abnormality. Moderate to severe multilevel degenerative changes of the lumbar spine which are likely similar to prior. Evaluation of the disc levels is limited on CT, but again noted is severe spinal canal narrowing at the L3-L4 level with neuroforaminal narrowing, particularly on the left. Assessment/Plan Assessment: Ms. Liya Oneal is an 82 year old female, with PMHx of Osteoarthritis & spinal stenosis with associated chronic lower back pain, neuropathy, non-ischemic cardiomopathy & PVC's, right bundle branch block, compensated systolic CHF, GERD, & thyroid cancer s/p partial thyroidectomy of right lobe & isthmus. She presented to the [facility] ED on 01/20/18 with a CC of severe lower back pain that began 3 days ago and has been progressively worsening and exertional dyspnea. She was given Morphine for the back pain, which helped temporarily improve her symptoms. While in the ED, she also experienced some intermittent chest pain that did not improve with Morphine, therefore raising a concern for ACS given her cardiac history. Physical exam also revealed bilateral hip pain, most likely related to osteoarthritis & RUQ tenderness on abdominal palpation, possibly related to the patients constipation. The patients EKG on admission revealed RBBB, consistent with prior EKG. Patient was also found to have low serum calcium & mildly low potassium levels. Plan: Ms. Oneal will be admitted to telemetry for monitoring and management of: #Chest Pain: Possibly due to GERD, consistent with the patients PMHx and her reports that the pain has at times woken her up at night, radiates to the back, is self resolving , and feels like burning pressure. ACS must be ruled out given the patients cardiac history and the location + character of the pain. - Monitor on telemetry - Serial troponins & EKG - Continue home medications - [facility] - Monitor vitals - Manage pain #Chronic back piain: Chronic ongoing problem, likely muskuloskeletal or due to osteoarthritis, but possible osteoporosis could also be a contributing factor. - Manage pain - PT evalulation - Continue to Monitor #Hypocalcemia: Possible due to osteoporosis, common in elderly womed & consistent with patients low bone density. Hypoparathyroidism must also be ruled out due to Hx of partial thyroidectomy possibly resaulting in damage to the parathyroid. - Start Calcium & Vitamin D supplementation - Obtain PTH levels - Check serum Magnesium - Repeat serum Calcium and Albumin tomorrow - Monitor BEP
[2018-01-20 17:30] VITALS: BP 112/60
--- NOTE | 2018-01-20 19:07 | Admission Certification ---
Admission Certification Certification Statement - As attending physician, I certify that at the time of - admission, based on clinical presentation, severity of - symptoms, need for further diagnostic testing and - therapeutic interventions, and risk of adverse outcomes - without in-hospital treatment, in my clinical assessment, - this patient requires an acute hospital stay for a minimum - of two nights or longer. I have also considered psychsocial - factors such as support system, advanced age, financial - issues, cognitive issues, and failed out-patient treatments, - past re-admission history, safety of patient, and lack of - compliance as applicable. Specific rationale supporting this admission is: back pain and chest pain.
[2018-01-20 22:08] VITALS: BP 128/76
[2018-01-21 06:54] VITALS: BP 160/80
--- NOTE | 2018-01-21 07:20 | PN- Housestaff ---
Kim URIBE,Anjana 01/21/18 0720: Subjective Follow-up For: Chronic progressive back pain, bilateral hip pain most likely due to osteo- arthritis angina Right bundle branch block Abdominal pain Hypocalcemia/ mild hypokalemia History of hypertension History of hyperlipidemia History of nonischemic cardiomyopat Complaints: pain scale (0-10) Tele-Events Since Last Visit: Normal sinus rhythm, 6175, QRS 0.1, CT 0.18, no overnight events Subjective: Patient seen and examined at bedside, she continues to complain of lower back pain 4/10 in severity, still endorses mild chest pain especially with palpation of the chest. She denies nausea, vomiting, diarrhea, constipation Review of Systems Constitutional: Reports: see HPI. Objective Last 24 Hrs of Vital Signs/I&O Vital Signs Date Time Temp Pulse Resp B/P B/P Pulse O2 O2 Flow FiO2 Mean Ox Delivery Rate 01/21 0847 98.3 67 20 160/80 01/21 0654 98.3 67 20 160/80 96 Room Air 01/20 2208 128/76 01/20 2105 75 144/88 01/20 1730 95 Room Air Room Air 01/20 1730 98.3 66 20 112/60 95 Room Air Room Air 01/20 1629 98.1 67 18 122/80 97 Room Air 01/20 1436 97.0 88 18 156/90 96 Room Air 01/20 1400 97.0 68 120/70 Intake & Output 01/21 1600 01/21 0800 01/21 0000 Intake Total 50 320 Output Total 300 200 Balance -250 120 Intake, Oral 50 320 Output, Urine 300 200 Patient 165 lb Weight Weight Bed scale Measurement Method Physical Exam General Appearance: Alert, Oriented X3, Cooperative, No Acute Distress Skin: No Rashes, No Breakdown, No Significant Lesion HEENT: Atraumatic, PERRLA, EOMI, Mucous Membr. moist/pink Neck: Supple, No JVD Cardiovascular: Normal S1, Normal S2, No Murmurs Lungs: Clear to Auscultation Abdomen: Normal Bowel Sounds, Soft, No Tenderness Neurological: Normal Speech, Strength at 5/5 X4 Ext, Normal Tone, Sensation Intact Extremities: No Clubbing, No Cyanosis, No Edema Vascular: Normal Pulses Assessment/Plan Assessment: 82 years old female with past medical history of nonischemic cardiomyopathy, bifascicular block, systolic compensated CHF, hypertension, thyroid cancer status post hemithyroidectomy (not on any medications), gastroesophageal reflux disease, spinal stenosis and associated chronic lower back pain/neuropathy who presented complaining of to the emergency department complaining of severe right sided lower back pain for which the patient used to take tramadol which was initially helping with her pain however she reports that the pain got progressively worse over the past 3 days. In addition she endorses chest pain 8/10 in severity which did not improve with IV morphine, given her cardiac history that the chest pain raise concern for ACS Vital signs on admission: Blood pressure 147/78, pulse 58, temperature 98, respiratory 20, pulse ox 95 on room air Labs on admission: CBCT was normal with WBC 7.4, hemoglobin 12.8, hematocrit 37.6, platelet 205, sodium 140, potassium 3.1, BUN 19, creatinine 0.5, Pro- BNP 865, d-dimer 268, Problem list: Chronic progressive back pain, bilateral hip pain most likely due to osteo- arthritis angina Right bundle branch block Abdominal pain Hypocalcemia/ mild hypokalemiaimproved History of hypertension History of hyperlipidemia History of nonischemic cardiomyopathy Plan: Continue to monitor on telemetry floor ACS was ruled out with serial troponins and EKG Follow-up on cardiology recommendation Continue home dose of carvedilol 12.5 p.o. twice daily Pain controlled with morphine, Percocet, Tylenol Flexeril 5 mg p.o. 3 times daily as needed for pain Continue home dose of omeprazole 40 mg p.o. daily Levothyroxine 50 mcg daily Start calcium and vitamin D supplement Close monitoring of I's and O's Close monitoring of vital signs Close monitoring of BEP Monitor electrolytes and replete accordingly PT evaluation Patient is full code DVT prophylaxis with subcutaneous heparin Heart healthy diet Problem List: 1. Back pain Pain Ratin Pain Location: Lower back Pain Goal: Remain pain free Pain Plan: pathway Tomorrow's Labs & Rationales: CBC/BEP DVT/Prophylaxis: mechanical, pharmacological Sheryl Jarvis 01/21/18 1403: Attending MD Review Statement Attending Statement Attending MD Statement: examined this patient, discuss w/resident/PA/EXTENDER, agreed w/resident/PA/EXTENDER, discussed with family, reviewed EMR data (avail), discussed with nursing, discussed with case mgmt Attending Assessment/Plan: pt still having the lower rt side back pain . getting pain meds. PT to reevaluate tomorrow to see if she will benefit from going home with home PT vs [facility]. d/w pt and pts family at bedside the care plan.
--- NOTE | 2018-01-21 09:31 | Cons- Cardiology ---
General Information and HPI Consulting Request Date of Consult: 01/21/18 Requested By: Sheryl Jarvis MD Reason for Consult: Atypical chest pain Source of Information: patient, old records Exam Limitations: no limitations History of Present Illness: The patient is an 82-year-old female with a history of nonischemic cardiomyopathy now with normalized ejection fraction, low limiting coronary artery disease by catheterization 09/15/2015, diastolic heart failure, right bundle branch block, hypertension, severe peripheral neuropathy with chronic back pain who now presents predominantly with complaints of leg pain and difficulty walking. Patient states that her pain has increased over the past 3 days prior to admission. He got to the point that she was unable to walk and her has to lift her to go to the bathroom. She therefore presented to the emergency room for evaluation. While the emergency room she developed severe epigastric discomfort radiating to her back and left upper quadrant. She states that she has had these episodes frequently in the past and they are relieved with belching. She denies associated shortness of breath or palpitations. She does describe dyspnea on exertion along with severe leg and back pain. She states that she did have an episode of her epigastric discomfort today that lasted for a few seconds and again was relieved with belching. She still complains of severe back leg and bilateral arm pain and numbness. Her most recent echocardiogram performed in the office 01/14/2017 demonstrated ejection fraction of 50-55%. Allergies/Medications Allergies: Coded Allergies: Influenza Virus Vaccines (NO FLU SHOT DUE TO SULFA ALLERGY PER PT 01/15/16) Sulfa (Sulfonamide Antibiotics) (HIVES 10/11/17) Home Med List: Carvedilol 12.5 MG TABLET 1 TAB PO BID CHF (Reported) Cyclobenzaprine HCl 5 MG TABLET 1 TAB PO TIDPRN BACK PAIN (Reported) Docusate Sodium (Colace) 100 MG CAPSULE 1 CAP PO BID constipation (Reported) Levothyroxine Sodium (Synthroid) 50 MCG TABLET 1 TAB PO DAILY HYPOTHYROIDISM (Reported) Omeprazole 40 MG CAPSULE.DR 1 CAP PO DAILY GERD (Reported) Sacubitril/Valsartan (Entresto 49 MG-51 MG Tablet) 49 MG-51 MG TABLET 1 TAB PO BID CHF (Reported) Simvastatin (Zocor*) 20 MG TABLET 1 TAB PO QPM HYPERLIPIDEMIA (Reported) Tramadol HCl 50 MG TABLET 1 TAB PO Q6P PRN BACK PAIN (Reported) Current Medications: Current Medications Sig/Martine Start time Last Medication Dose Route Stop Time Status Admin Aspirin 81 MG DAILY 01/20 1716 AC 01/21 PO 0847 Atorvastatin Calcium 10 MG 1700 01/20 1700 AC 01/20 PO 1757 Calcium 600 MG BID 01/20 2200 AC 01/21 PO 0847 Carvedilol 12.5 MG BID 01/20 2200 AC 01/21 PO 0847 Cyclobenzaprine HCl 5 MG TIDPRN 01/20 1615 AC PO Ergocalciferol 50,000 IU ONCE ONE 01/20 1900 DC 01/20 PO 01/20 1901 2041 Levothyroxine Sodium 0.05 MG DAILY AC 01/21 0700 AC 01/21 PO 0616 Magnesium Chloride 64 MG BID 01/20 2200 AC 01/21 PO 0846 Morphine Sulfate 1 MG Q6P PRN 01/20 1615 AC IV Morphine Sulfate 2 MG ONCE ONE 01/20 1245 DC 01/20 IV 01/20 1246 1239 Morphine Sulfate 0 .STK-MED ONE 01/20 1242 DC .ROUTE Omeprazole 0 .STK-MED ONE 01/20 1629 DC PO Omeprazole 40 MG DAILY AC 01/20 1603 AC 01/21 PO 0616 Oxycodone/ 1 TAB Q6P PRN 01/20 1615 AC Acetaminophen PO Potassium Chloride 0 .STK-MED ONE 01/20 1236 DC PO Potassium Chloride 40 MEQ ONCE ONE 01/20 1230 DC 01/20 PO 01/20 1231 1239 Sacubitril/Valsartan 1 TAB BID 01/21 1000 AC 01/21 PO 0847 Tramadol HCl 50 MG Q6P PRN 01/20 1615 CAN PO Review of Systems Review of Systems: Eyes no blurred or double vision Ears no deafness or ringing Nose and throat no recurrent sinusitis Lungs per history of present illness Heart per history of present illness Abdomen no nausea vomiting Musculoskeletal severe back pain Psych no anxiety or depression Neuro without recurrent headache or seizures severe neuropathy pain bilaterally and legs Endocrine no heat or cold intolerance Past History Travel History Traveled to [place] past 21 day No Medical History Blood Transfusion Hx: No Neurological: NEUROPATHY HANDS EENT: NONE Cardiovascular: cardiomyopathy, CHF, hypertension, BRADYCARDIA "IRREGULAR RHYTHM " bifascicular block Respiratory: COPD Gastrointestinal: GERD Hepatic: NONE Renal: NONE Musculoskeletal: OSTEROARTHRITIS DEGENERATIVE DISC DISEASE Psychiatric: NONE Endocrine: THYROIDECTOMY Blood Disorders: NONE Cancer(s): thyroid cancer 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 Home Services at Home: None Smoking Status: Former Smoker ETOH Use: denies use Illicit Drug Use: denies illicit drug use Exam & Diagnostic Data Vital Signs and I&O Vital Signs Date Time Temp Pulse Resp B/P B/P Pulse O2 O2 Flow FiO2 Mean Ox Delivery Rate 01/21 0847 98.3 67 20 160/80 01/21 0654 98.3 67 20 160/80 96 Room Air 01/20 2208 128/76 01/20 2105 75 144/88 01/20 1730 95 Room Air Room Air 01/20 1730 98.3 66 20 112/60 95 Room Air Room Air 01/20 1629 98.1 67 18 122/80 97 Room Air 01/20 1436 97.0 88 18 156/90 96 Room Air 01/20 1400 97.0 68 120/70 01/20 1247 97.8 66 20 138/90 96 Room Air 01/20 1008 98.0 58 20 147/78 95 Room Air Intake & Output 01/21 1600 01/21 0800 01/21 0000 01/20 1600 01/20 0800 01/20 0000 Intake Total 50 320 Output Total 300 200 Balance -250 120 Intake, Oral 50 320 Output, Urine 300 200 Patient 165 lb 160 lb Weight Weight Bed scale Reported by Patient Measurement Method Physical Exam: Patient is a well-developed well-nourished female appearing in no acute distress HEENT is unremarkable Neck is supple there is no JVD Lungs are clear Heart regular rhythm S1 and S2 are normal no murmurs gallops or rubs Abdomen bowel sounds positive Extremities without edema Skin without lesions Psych mood and affect are normal Labs/Gray Results: Laboratory Tests 01/2130 193 192 Chemistry Sodium (137 - 145 mmol/L) 140 Potassium (3.5 - 5.1 mmol/L) 4.1 Chloride (98 - 107 mmol/L) 107 Carbon Dioxide (22 - 30 mmol/L) 26 Anion Gap (5 - 16) 8 BUN (7 - 17 mg/dL) 17 Creatinine (0.5 - 1.0 mg/dL) 0.6 Estimated GFR (>60 ml/min) > 60 BUN/Creatinine Ratio (7 - 25 %) 28.3 H Calcium (8.4 - 10.2 mg/dL) 8.3 L Total Bilirubin (0.2 - 1.3 mg/dL) 0.5 Direct Bilirubin (< 0.4 mg/dL) 0.4 AST (14 - 36 U/L) 30 ALT (9 - 52 U/L) 43 Alkaline Phosphatase (<127 U/L) 105 Troponin I (< 0.11 ng/ml) < 0.01 Total Protein (6.3 - 8.2 g/dL) 5.5 L Albumin (3.5 - 5.0 g/dL) 3.0 L Urines Urine Color (YEL,AMB,STR) YEL Urine Clarity (CLEAR) CLEAR Urine pH (5.0 - 8.0) 6.5 Ur Specific [place] (1.001 - 1.035) 1.010 Urine Protein (NEG,<30 MG/DL) 100 H Urine Ketones (NEG) NEG Urine Nitrite (NEG) NEG Urine Bilirubin (NEG) NEG Urine Urobilinogen (0.1 - 1.0 EU/dl) 1.0 Ur Leukocyte Esterase (NEG) NEG Ur Microscopic SEDIMENT EXAMINED Urine RBC (0 - 5 /HPF) RARE Urine WBC (0 - 2 /HPF) 1-3 H Ur Epithelial Cells (NONE,FEW) RARE Urine Bacteria (NEG/NONE) RARE H Urine Hemoglobin (NEG) TRACE-INTACT Urine Glucose (N MG/DL) NEG 01/20 01/20 1350 1125 Chemistry Sodium (137 - 145 mmol/L) 140 Potassium (3.5 - 5.1 mmol/L) 3.1 L Chloride (98 - 107 mmol/L) 112 H Carbon Dioxide (22 - 30 mmol/L) 21 L Anion Gap (5 - 16) 6 BUN (7 - 17 mg/dL) 19 H Creatinine (0.5 - 1.0 mg/dL) 0.5 Estimated GFR (>60 ml/min) > 60 BUN/Creatinine Ratio (7 - 25 %) 38.0 H Glucose (65 - 99 mg/dL) 79 Calcium (8.4 - 10.2 mg/dL) 6.7 L Phosphorus (2.5 - 4.5 mg/dL) 3.0 Magnesium (1.6 - 2.3 mg/dL) 1.7 Total Bilirubin (0.2 - 1.3 mg/dL) 0.3 AST (14 - 36 U/L) 8 L ALT (9 - 52 U/L) 17 Alkaline Phosphatase (<127 U/L) 53 Troponin I (< 0.11 ng/ml) 0.02 < 0.01 [id number] Pept (<125 pg/mL) 865 H Total Protein (6.3 - 8.2 g/dL) 4.4 L Albumin (3.5 - 5.0 g/dL) 2.3 L Globulin (1.9 - 4.2 gm/dL) 2.1 Albumin/Globulin Ratio (1.1 - 2.2 %) 1.1 25-OH Vitamin D Total (30 - 100 ng/ml) 6.8 L PTH Intact (18.4 - 80.1 pg/ML) 48.8 Coagulation D-Dimer High Sensitivty (0 - 243 ng/ml) 268 H Hematology CBC w Diff NO MAN DIFF REQ WBC (4.8 - 10.8 /CUMM) 7.4 RBC (4.20 - 5.40 /CUMM) 4.44 Hgb (12.0 - 16.0 G/DL) 12.8 Hct (37 - 47 %) 37.6 MCV (81.0 - 99.0 FL) 84.8 MCH (27.0 - 31.0 PG) 28.9 MCHC (33.0 - 37.0 G/DL) 34.1 RDW (11.5 - 14.5 %) 13.1 Plt Count (130 - 400 /CUMM) 205 MPV (7.4 - 10.4 FL) 8.8 Gran % (42.2 - 75.2 %) 74.2 Lymphocytes % (20.5 - 51.1 %) 19.0 L Monocytes % (1.7 - 9.3 %) 6.2 Eosinophils % (0 - 5 %) 0.6 Basophils % (0.0 - 2.0 %) 0 Absolute Granulocytes (1.4 - 6.5 /CUMM) 5.5 Absolute Lymphocytes (1.2 - 3.4 /CUMM) 1.4 Absolute Monocytes (0.10 - 0.60 /CUMM) 0.5 Absolute Eosinophils (0.0 - 0.7 /CUMM) 0 Absolute Basophils (0.0 - 0.2 /CUMM) 0 Diagnostic Data EKG Results Sinus rhythm right bundle branch block and left posterior fascicular block CXR Results IMPRESSION: No acute pulmonary findings. Assessment/Plan Assessment/Plan 1. Atypical chest pain. The discomfort she experiences is predominantly epigastric with radiation to the back and left upper quadrant. It is most likely secondary to gastroesophageal reflux disease. She has ruled out for myocardial infarction and her EKG demonstrated no acute changes. 2. Nonischemic cardiomyopathy by history now with normalized LV function with EF of 50-55% improved with Entresto 3. Nonflow limiting coronary artery disease by catheterization in 2014 4. Hypertension 5. Chronic diastolic heart failure with minimally elevated BNP no evidence of acute heart failure 6. Severe chronic back pain with neuropathy Recommendations 1. I would continue current medications 2. Physical therapy for ambulation 3. Monitor lites and replete potassium as needed 3. Her symptoms of atypical chest discomfort appeared to be more secondary to reflux disease therefore do not feel it further cardiac workup is required at this time. She will be followed closely as an outpatient. Thank you for allowing [facility] to participate in the care of your patient. Consult Acknowledgment - Thank you for your consult request.
--- NOTE | 2018-01-21 11:32 | Patient Discharge Instructions ---
Discharge Instructions General Discharge Information You were seen/treated for: Chronic progressive back pain, bilateral hip pain most likely due to osteo- arthritis angina Special Instructions: 1-please follow-up with your PCP in 1 week discharge 2please follow-up with your hose inspector and patcher in 1 week of discharge Diet Continue normal diet: Yes Activity Full Activity/No Limits: Yes Acute Coronary Syndrome Inclusion Criteria At DC or during hospital stay patient has or had the following: ACS DIAGNOSIS No Discharge Core Measures Meds if any: Prescribed or Continued at Discharge Meds if any: NOT Prescribed or Continued at Discharge Congestive Heart Failure Inclusion Criteria At DC or during hospital stay patient has or had the following: CHF DIAGNOSIS No Discharge Core Measures Meds if any: Prescribed or Continued at Discharge Meds if any: NOT Prescribed or Continued at Discharge Cerebrovascular accident Inclusion Criteria At DC or during hospital stay patient has or had the following: CVA/TIA Diagnosis No Discharge Core Measures Meds if any: Prescribed or Continued at Discharge Meds if any: NOT Prescribed or Continued at Discharge Venous thromboembolism Inclusion Criteria VTE Diagnosis No VTE Type NONE VTE Confirmed by (Test) NONE Discharge Core Measures - Per Current guidelines, there needs to be overlap - treatment for the first 5 days of Warfarin therapy. - If discharged on Warfarin prior to 5 days of - overlap therapy, the patient will need to be - assessed for post discharge needs including - *Post discharge parental anticoagulation - *Warfarin and/or parental anticoagulation education - *Follow up date to check INR post discharge At least 5 days overlap therapy as Inpatient No Meds if any: Prescribed or Continued at Discharge Note: Overlap Therapy is Warfarin and Anticoagulant Meds if any: NOT Prescribed or Continued at Discharge
[2018-01-21 16:44] VITALS: BP 148/78
[2018-01-21 21:57] VITALS: BP 130/70
[2018-01-22 07:07] VITALS: BP 140/70
--- NOTE | 2018-01-22 07:09 | PN- Housestaff ---
Kim URIBE,Anjana 01/22/18 0709: Subjective Follow-up For: Chronic progressive back pain, bilateral hip pain most likely due to osteo- arthritis angina Right bundle branch block Abdominal pain Hypocalcemia/ mild hypokalemia History of hypertension History of hyperlipidemia History of nonischemic cardiomyopat Tele-Events Since Last Visit: Normal sinus rhythm, 5469, QRS 0.1, IL 0.16, 3 PVCs Subjective: Patient was seen and examined at bedside, afebrile, no overnight events, he reports market improvement of her back and chest pain. Yesterday she had few brief episodes of chest pain which subsided without any medications. Review of Systems Constitutional: Reports: see HPI. Objective Last 24 Hrs of Vital Signs/I&O Vital Signs Date Time Temp Pulse Resp B/P B/P Pulse O2 O2 Flow FiO2 Mean Ox Delivery Rate 01/22 0956 Room Air Room Air 01/22 0857 68 140/70 01/22 0800 94 Room Air 01/22 0707 97.9 64 20 140/70 94 Room Air 01/21 2157 98.0 75 20 130/70 95 01/21 2044 77 140/88 01/21 1644 98.0 61 20 148/78 95 Intake & Output 01/22 1600 01/22 0800 01/22 0000 Intake Total 100 120 Output Total 500 Balance -400 120 Intake, Oral 100 120 Output, Urine 500 Patient 164 lb Weight Physical Exam General Appearance: Alert, Oriented X3, Cooperative, No Acute Distress HEENT: Atraumatic, PERRLA, EOMI, Mucous Membr. moist/pink Neck: Supple, No JVD Cardiovascular: Normal S1, Normal S2, No Murmurs Lungs: Clear to Auscultation, Normal Air Movement Abdomen: Normal Bowel Sounds, Soft Neurological: Normal Speech, Strength at 5/5 X4 Ext, Normal Tone, Sensation Intact Extremities: No Clubbing, No Cyanosis, No Edema Vascular: Normal Pulses Assessment/Plan Assessment: 82 years old female with past medical history of nonischemic cardiomyopathy, bifascicular block, systolic compensated CHF, hypertension, thyroid cancer status post hemithyroidectomy (not on any medications), gastroesophageal reflux disease, spinal stenosis and associated chronic lower back pain/neuropathy who presented complaining of to the emergency department complaining of severe right sided lower back pain for which the patient used to take tramadol which was initially helping with her pain however she reports that the pain got progressively worse over the past 3 days. In addition she endorses chest pain 8/10 in severity which did not improve with IV morphine, given her cardiac history that the chest pain raise concern for ACS Vital signs on admission: Blood pressure 147/78, pulse 58, temperature 98, respiratory 20, pulse ox 95 on room air Labs on admission: CBCT was normal with WBC 7.4, hemoglobin 12.8, hematocrit 37.6, platelet 205, sodium 140, potassium 3.1, BUN 19, creatinine 0.5, Pro- BNP 865, d-dimer 268, Problem list: Chronic progressive back pain, bilateral hip pain most likely due to osteo- arthritis angina Right bundle branch block Abdominal pain Hypocalcemia/ mild hypokalemiaimproved History of hypertension History of hyperlipidemia History of nonischemic cardiomyopathy Plan: ACS was ruled out with serial troponins and EKG Follow-up on cardiology recommendation Continue home dose of carvedilol 12.5 p.o. twice daily Pain controlled with morphine, Percocet, Tylenol Flexeril 5 mg p.o. 3 times daily as needed for pain Continue home dose of omeprazole 40 mg p.o. daily Levothyroxine 50 mcg daily Continue calcium and vitamin D supplement Close monitoring of I's and O's Close monitoring of vital signs Close monitoring of BEP Monitor electrolytes and replete accordingly PT evaluation Patient is a stable to be discharged to [facility] today Patient is full code DVT prophylaxis with subcutaneous heparin Heart healthy diet Problem List: 1. Back pain Pain Ratin Pain Location: back Pain Goal: Pain 4 or less Pain Plan: [facility] Labs & Rationales: cbc bep DVT/Prophylaxis: mechanical, pharmacological Sheryl Jarvis 01/22/18 1338: Attending MD Review Statement Attending Statement Attending MD Statement: examined this patient, discuss w/resident/PA/CAR HOSTLER, agreed w/resident/PA/CAR HOSTLER, reviewed EMR data (avail), discussed with nursing, discussed with case mgmt Attending Assessment/Plan: pts back pain is much better. bp is better controlled. plan dc to [facility] today. d/w pt the care plan.
--- NOTE | 2018-01-22 08:45 | Discharge Summary ---
Visit Information Visit Dates Admission Date: 01/20/18 Discharge Date: 01/22/2018 Hospital Course Course Attending Physician: Matheus URIBE,Sheryl Balderas Primary Care Physician: Ciro URIBE,Burke Hastings Hospital Course: Patient is an 82-year-old female presented with chief complaints of gradually progressive right-sided back pain. ED course - Vital signs -temperature 98.0, pulse 58, respiratory 20, blood pressure 147/78, SPO2 95% on room air Blood workup -WBC 7.4, hemoglobin 12.8, hematocrit 37.6, platelet count 205, sodium 140, potassium 3.1, chloride 112, carbon x-ray 21, anion gap 6, BUN 9, creatinine 0.5, GFR 60, glucose 79, serum calcium 6.7(corrected calcium 8.1), total bilirubin 0.8, AST 8, ALT 17, alkaline phosphatase 53, troponin I 0.01, 0.02, proBNP 865, albumin 2.3, d-dimer 268. On examination - alert is 3, tender bilateral lower back at the site of hip joints, movement at the hip joints were painful left more than the right, tender upper abdomen, heart S1-S2 normal, lungs bilateral clear, peripheral pulses are palpable. Chest x-ray -no any cardiopulmonary abnormality CT of the lumbar spine -severe spinal canal narrowing at the L3-L4 level with neuroforaminal narrowing, particularly on the left. CT abdomen pelvis - 1. CBD is dilated measuring 1.3 cm proximally, tapering distally(previously measured 1.1 cm 2013). No evidence of choledocholithiasis. 2. Stable indeterminate left adrenal nodule. 3. Multiple hypodense lesions in the bilateral kidneys, probably reflecting cysts. There is a 1.4 cm hypodense lesion in the midpole left kidney, increased in size as compared to previous, which is indeterminate by CT measurements. Further characterization with ultrasound as clinically warranted. 4. Diverticulosis. No evidence of diverticulitis. Chest Pain - Ruled out ACS Patient was complaining of upper abdominal pain. We admitted the patient to telemetry floor because she had multiple cardiac risk factor to rule out acute coronary syndrome. We did serial troponins and EKGs which were negative.We obtained a cardiology consult who advised to treat conservatively with same medication. Chronic lower back pain - We did CT abdomen pelvis which showed Multilevel degenerative changes of the spine,bilateral SI joints,DJD of bilateral hip joints. She was not responding to tramadol so we started her on Percocet as needed. We did PT evaluation who advised for STI placement for further strenthening. Severe vitamin D deficiency with hypocalcemia - At the time of admission patient was having hypocalcemia(6.7). We did check serum magnesium (1.7), vitamin D level(6.8) and PTH (48.8). We supplemented patient with magnesium/calcium and high-dose vitamin D (50,000IU x once). We advised To continue high-dose vitamin D every weekly for total of 8 doses, and continue calcium supplementation.We advised her to follow-up with PCP for further management of vitamin D deficiency. Allergies: Coded Allergies: Influenza Virus Vaccines (NO FLU SHOT DUE TO SULFA ALLERGY PER PT 01/15/16) Sulfa (Sulfonamide Antibiotics) (HIVES 10/11/17) Disposition Summary Disposition Principal Diagnosis: Chronic lower back pain Severe vitamin D deficiency with hypocalcemia Stable indeterminate left adrenal nodule. 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 Please have evaluation from Orthopedics, for DJD. Please take medication as advised. Medications at Discharge Discharge Medications: Stop taking the following medications: Tramadol HCl (Tramadol HCl) 50 MG TABLET ORAL EVERY SIX HOURS NEEDED as needed for BACK PAIN Qty = 30 Continue taking these medications: Omeprazole (Omeprazole) 40 MG CAPSULE.DR 1 Capsule ORAL DAILY Qty = 30 Comments: Last Taken: 01/22/18 Time: 0625 Carvedilol (Carvedilol) 12.5 MG TABLET 1 Tablet ORAL TWICE DAILY Qty = 60 Comments: Last Taken: 01/22/18 Time: 0900 Levothyroxine Sodium (Synthroid) 50 MCG TABLET 1 Tablet ORAL DAILY Qty = 30 Comments: Last Taken: 01/22/18 Time: 0625 Cyclobenzaprine HCl (Cyclobenzaprine HCl) 5 MG TABLET 1 Tablet ORAL THREE TIMES A DAY NEEDED Qty = 30 Comments: Last Taken: NOT GIVEN IN HOSPITAL Time: Simvastatin (Zocor*) 20 MG TABLET 1 Tablet ORAL Every night Qty = 30 Comments: Last Taken: 01/21/18 Time: 1620 Sacubitril/Valsartan (Entresto 49 MG-51 MG Tablet) 49 MG-51 MG TABLET 1 Tablet ORAL TWICE DAILY Qty = 30 Comments: Last Taken: 01/22/18 Time: 0900 Docusate Sodium (Colace) 100 MG CAPSULE 1 Capsule ORAL TWICE DAILY Qty = 60 Comments: Last Taken: NOT GIVEN IN HOSPITAL Time: Start taking the following new medications: Aspirin (Aspirin*) 81 MG TAB.CHEW 81 Milligram ORAL DAILY Qty = 30 No Refills Comments: Last Taken: 01/22/18 Time: 0900 Calcium Carbonate (Calcium Carbonate) 500 MG CALCIUM (1,250 MG) TABLET 600 Milligram ORAL TWICE DAILY Qty = 60 No Refills Comments: Last Taken: 01/22/18 Time: 0900 Ergocalciferol (Vitamin D2) (Vitamin D2) 50,000 UNIT CAPSULE 1 Capsule ORAL Once a Week Qty = 7 No Refills Comments: Last Taken: NOT GIVEN IN HOSPITAL Time: Oxycodone HCl/Acetaminophen (Percocet 5-325 MG Tablet) 5 MG-325 MG TABLET 1 Tablet ORAL THREE TIMES DAILY as needed for moderate pain Qty = 15 No Refills Comments: Last Taken: 01/22/18 Time: 0900 Copies To: Ciro URIBE,Burke Hastings Attending MD Review Statement Documenting Attending: Sheryl Jarvis MD
[2018-01-22 10:46] LABS: ABSOLUTE BASOPHIL COUNT 0 /CUMM (0.0-0.2); ABSOLUTE EOSINOPHIL COUNT 0.1 /CUMM (0.0-0.7); ABSOLUTE LYMPH COUNT 1.1 /CUMM (1.2-3.4); ABSOLUTE MONOCYTE COUNT 0.5 /CUMM (0.10-0.60); BASOPHIL % 0.3 % (0.0-2.0); EOSINOPHIL % 0.9 % (0-5); GRANULOCYTE % 70.7 % (42.2-75.2); HEMATOCRIT 36.3 % (37-47); MEAN CORPUSCULAR VOLUME 85.2 FL (81.0-99.0); PLATELET COUNT 200 /CUMM (130-400); RBC DISTRIBUTION WIDTH 13.1 % (11.5-14.5); RED BLOOD CELL CT 4.27 /CUMM (4.20-5.40); WHITE BLOOD CELL COUNT 5.7 /CUMM (4.8-10.8)
[2018-01-22] MEDS ORDERED: CALCIUM CARBON500 M2 PO (11:01)
[2018-01-22] MEDS ORDERED: ASPIRIN81 M4 PO (11:01)
[2018-01-22] MEDS ORDERED: VITAMIN D250000 UNIT PO (11:01)
[2018-01-22] MEDS ORDERED: PERCOCET 5-3251 EACH PO (12:01)
[2018-01-22 14:46] VITALS: BP 126/70
[2018-01-22 16:42] VITALS: BP 126/70
== END 2018-01-22 17:04 | DRG 313 ==
LOC: ERH 09:57 → 1NO 13:59 → ERHI 13:59 → ENRESERV 16:11 → ENTRNSPT 16:39 → EDTRNSPT 16:46 → CMPTRNSPT 16:46 → EDTRNSPTSTS 16:46 → 1NO 16:52 → ENPENDDIS 01-22 11:36 → ENTRNSPT 01-22 16:52 → 1NO 01-22 17:04 → EDTRNSPTSTS 01-22 17:13 → CMPTRNSPT 01-22 17:16
PROVIDERS: Physician Assistant Medical; Student in an Organized Health Care Education/Training Program
DX: R07.89 Other chest pain (principal); I42.8 Other cardiomyopathies; I11.0 Hypertensive heart disease with heart failure; I50.22 Chronic systolic (congestive) heart failure; J44.9 Chronic obstructive pulmonary disease, unspecified; E83.51 Hypocalcemia; I45.2 Bifascicular block; K21.9 Gastro-esophageal reflux disease without esophagitis; G56.93 Unspecified mononeuropathy of bilateral upper limbs; M16.0 Bilateral primary osteoarthritis of hip; E87.6 Hypokalemia; G89.29 Other chronic pain; E78.5 Hyperlipidemia, unspecified; M54.5 Low back pain; M48.00 Spinal stenosis, site unspecified; N28.9 Disorder of kidney and ureter, unspecified; E55.9 Vitamin D deficiency, unspecified; I49.3 Ventricular premature depolarization; Z88.7 Allergy status to serum and vaccine; Z85.850 Personal history of malignant neoplasm of thyroid; Z90.49 Acquired absence of other specified parts of digestive tract; Z88.2 Allergy status to sulfonamides; Z96.651 Presence of right artificial knee joint; Z87.891 Personal history of nicotine dependence
CPT/HCPCS: 1NP; 36415; 36592; 71045; 74177; 81001; 82436; 93005; 93010; 97116-GO; 97161-GP; 97530-GO; J1644; J3490

== ENCOUNTER 2018-04-23 08:43 | Emergency (ER) | payer OTHER ==
[~2018-04-23 08:43] MED LIST changes: +ASPIRIN81 M4 PO; +CALCIUM CARBON500 M2 PO; +CARVEDILOL12.5 M1 PO; +COLACE100 M1 PO; +CYCLOBENZAPRINE5 M2 PO; +ENTRESTO 49 MG1 EACH PO; +OMEPRAZOLE40 M1 PO; +PERCOCET 5-3251 EACH PO; +SYNTHROID50 MCG PO; +TRAMADOL HCL50 M1 PO; +VITAMIN D250000 UNIT PO; +ZOCOR20 M1 PO
--- NOTE | 2018-04-23 09:22 | RADIOLOGY REPORT ---
EXAMINATION: XR PORTABLE CHEST CLINICAL INFORMATION: Chest pain. COMPARISON: 01/20/2018 TECHNIQUE: Portable frontal view of the chest was obtained. FINDINGS: Lungs are well expanded and clear. Trachea is midline in position. Cardiac silhouette is normal in size. Hilar contours are normal. No pneumothorax or pleural effusion. Degenerative arthropathy of acromioclavicular joints and bilateral high riding humeral heads, indicative of chronic rotator cuff tears. IMPRESSION: No acute cardiopulmonary abnormality.
[2018-04-23] MEDS ORDERED: PREDNISONE5 M1 PO (09:26)
[2018-04-23] MEDS ORDERED: TRAMADOL HCL50 M1 PO ×2 (09:27→09:28)
[2018-04-23] MEDS ORDERED: ESCITALOPRAM OXA5 MG PO (09:27)
[2018-04-23 09:31] LABS: ABSOLUTE BASOPHIL COUNT 0 /CUMM (0.0-0.2); ABSOLUTE EOSINOPHIL COUNT 0 /CUMM (0.0-0.7); ABSOLUTE GRANULOCYTE CT 4.8 /CUMM (1.4-6.5); ABSOLUTE LYMPH COUNT 1.2 /CUMM (1.2-3.4); ABSOLUTE MONOCYTE COUNT 0.4 /CUMM (0.10-0.60); BASOPHIL % 0.3 % (0.0-2.0); EOSINOPHIL % 0.4 % (0-5); GRANULOCYTE % 73.9 % (42.2-75.2); HEMATOCRIT 41.2 % (37-47); MEAN CORPUSCULAR HGB 28.7 PG (27.0-31.0); MEAN CORPUSCULAR HGB CONC 33.2 G/DL (33.0-37.0); MEAN CORPUSCULAR VOLUME 86.5 FL (81.0-99.0); MEAN PLATELET VOLUME 8.1 FL (7.4-10.4); PLATELET COUNT 245 /CUMM (130-400); RBC DISTRIBUTION WIDTH 14.4 % (11.5-14.5); RED BLOOD CELL CT 4.77 /CUMM (4.20-5.40); WHITE BLOOD CELL COUNT 6.5 /CUMM (4.8-10.8)
--- NOTE | 2018-04-23 09:38 | ED CARDIAC/CP/PALPITATIONS ---
History of Present Illness General Chief Complaint: Chest Pain Stated Complaint: CP Source: patient Exam Limitations: no limitations Allergies Coded Allergies: Influenza Virus Vaccines (NO FLU SHOT DUE TO SULFA ALLERGY PER PT 01/15/16) Sulfa (Sulfonamide Antibiotics) (HIVES 10/11/17) Reconcile Medications Aspirin (Aspirin*) 81 MG TAB.CHEW 81 MG PO DAILY blood thinner Calcium Carbonate 500 MG CALCIUM (1,250 MG) TABLET 600 MG PO BID supplement Carvedilol 12.5 MG TABLET 1 TAB PO BID CHF (Reported) Cyclobenzaprine HCl 5 MG TABLET 1 TAB PO TIDPRN BACK PAIN (Reported) Docusate Sodium (Colace) 100 MG CAPSULE 1 CAP PO BID constipation (Reported) Ergocalciferol (Vitamin D2) (Vitamin D2) 50,000 UNIT CAPSULE 1 CAP PO QW supplement Escitalopram Oxalate 5 MG TABLET 1 TAB PO DAILY MENTAL HEALTH (Reported) Levothyroxine Sodium (Synthroid) 50 MCG TABLET 1 TAB PO DAILY AC THYROID ( Reported) Omeprazole 40 MG CAPSULE.DR 1 CAP PO DAILY GERD (Reported) Prednisone 5 MG TABLET 1 TAB PO DAILY STEROID (Reported) Sacubitril/Valsartan (Entresto 49 MG-51 MG Tablet) 49 MG-51 MG TABLET 1 TAB PO BID CHF (Reported) Simvastatin (Zocor*) 20 MG TABLET 1 TAB PO QPM HYPERLIPIDEMIA (Reported) Tramadol HCl 50 MG TABLET 2 TAB PO DAILY PAIN (Reported) Tramadol HCl 50 MG TABLET 1 TAB PO QPM PAIN (Reported) Triage Note: 83F WITH SIGNIFICANT CARDIAC HX ARRIVES WITH 1 HOUR OF LEFT SIDED CP/BREAST PAIN AND BELCHING WITH INDIGESTION. DENIES SOB OR COUGH -N/V BUT LOOSE STOOLS. STATES SHE RECENTLY HAD ECHOCARDIOGRAM WITH RUBY ENGINEER. EKG APPEARS WITH NOTABLE BLOCK, HR 50'S. Triage Nurses Notes Reviewed? yes Onset: Abrupt Duration: hour(s): Timing: recent history HPI: 83-year-old female with no known history of coronary artery disease presents with chest pain which started this morning. The patient woke up with this chest pain. She reports feeling of belching and upset stomach and her lower chest on the left side. The patient denies nausea vomiting. She denies diarrhea. She denies any specific abdominal pain. She denies shortness of breath, diaphoresis. She denies any exertional pain. She reports belching multiple times. She sees a home health caregiver. She reports that she had an echo 2 weeks ago. She reports that she got some labs done yesterday for her home health caregiver. (Randolph Ackerman DO) Vital Signs & Intake/Output Vital Signs & Intake/Output Vital Signs Date Time Temp Pulse Resp B/P B/P Pulse O2 O2 Flow FiO2 Mean Ox Delivery Rate 04/23 1429 98.3 60 18 144/76 97 Room Air 04/23 1245 98.6 54 20 160/70 96 Room Air 04/23 1054 97.8 58 18 143/70 96 Room Air 04/23 0852 98.0 56 18 142/80 95 Room Air (Carson URIBE,Apolinar Leo) Past History Travel History Traveled to [place] past 21 day No Medical History Any Pertinent Medical History? see below for history Neurological: NEUROPATHY HANDS EENT: NONE Cardiovascular: cardiomyopathy, CHF, hypertension, BRADYCARDIA "IRREGULAR RHYTHM " bifascicular block Respiratory: COPD Gastrointestinal: GERD Hepatic: NONE Renal: NONE Musculoskeletal: OSTEROARTHRITIS DEGENERATIVE DISC DISEASE Psychiatric: NONE Endocrine: THYROIDECTOMY Blood Disorders: NONE Cancer(s): thyroid cancer HATCHERY ATTENDANT/Reproductive: NONE History of MRSA: No History of VRE: No History of CDIFF: No Surgical History Surgical History: appendectomy, cholecystectomy, , knee replacement ( RIGHT), right thyroid lobe and isthmus ectomy NEURO OPERATION 1941 Psychosocial History Who do you live with Spouse Services at Home None What is your primary language Cypriot Tobacco Use: Refused to answer Family History Hx Contributory? No (Randolph Ackerman DO) Review of Systems Review of Systems Constitutional: Denies: no symptoms. EENTM: Denies: no symptoms. Respiratory: Reports: see HPI. Denies: no symptoms. Cardiovascular: Reports: see HPI, chest pain. Denies: no symptoms. GI: Reports: see HPI. Musculoskeletal: Denies: no symptoms. Skin: Denies: rash. Hematologic/Endocrine: Denies: no symptoms. Immunologic/Allergic: Denies: no symptoms. (Randolph Ackerman DO) Physical Exam Physical Exam General Appearance: well developed/nourished Head: atraumatic, normal appearance Eyes: Bilateral: PERRL, EOMI. Ears, Nose, Throat: normal pharynx, normal ENT inspection Neck: normal inspection, supple, full range of motion, JVD Respiratory: normal breath sounds, tender over ck L lower chest Cardiovascular: regular rate/rhythm Gastrointestinal: epigastric tendernss Back: normal range of motion Extremities: normal inspection, normal capillary refill, normal range of motion, no edema Neurologic/Psych: no motor/sensory deficits, awake, alert, oriented x 3 Skin: intact, normal color Core Measures ACS in differential dx? Yes CVA/TIA Diagnosis No Sepsis Present: No Sepsis Focused Exam Completed? No (Randolph Ackerman DO) Progress Differential Diagnosis: CHF/pulm edema (.) (Randolph Ackerman DO) Plan of Care: Orders Procedure Date/time Status Heart Healthy Diet 04/23 D Active TROPONIN LEVEL 04/23 1300 Complete EKG 04/23 1300 Active TROPONIN LEVEL 04/23 0900 Complete LIPASE 04/23 0900 Complete COMPREHENSIVE METABOLIC PANEL 04/23 0900 Complete CBC WITHOUT DIFFERENTIAL 04/23 0900 Complete EKG 04/23 0845 Active Laboratory Tests 04/23/18 1306: Troponin I < 0.01 04/23/18 0911: Anion Gap 9, Estimated GFR > 60, BUN/Creatinine Ratio 30.0 H, Glucose 127 H, Calcium 8.7, Total Bilirubin 0.4, AST 18, ALT 20, Alkaline Phosphatase 56, Troponin I < 0.01, Total Protein 6.3, Albumin 3.6, Globulin 2.7, Albumin/ Globulin Ratio 1.3, Lipase 35, CBC w Diff NO MAN DIFF REQ, RBC 4.77, MCV 86.5, MCH 28.7, MCHC 33.2, RDW 14.4, MPV 8.1, Gran % 73.9, Lymphocytes % 18.8 L, Monocytes % 6.6, Eosinophils % 0.4, Basophils % 0.3, Absolute Granulocytes 4.8, Absolute Lymphocytes 1.2, Absolute Monocytes 0.4, Absolute Eosinophils 0, Absolute Basophils 0 Initial ED EKG: SR WITH BIFASICULAR BLOCK Prior EKG: unchanged Repeat EKG: unchanged Rhythm Strip: normal sinus rhythm Comments: Case was discussed with Dr. tawanna hunter. Patient is stable for discharge at this time. Patient will follow-up with Dr. Swift in the office. (Carson URIBE,Apolinar Leo) Departure Departure Condition: Stable Departure Forms: Customer Survey General Discharge Information Comments The patient has isolated left costochondral pain and tenderness,no rash. EKG is unchanged. Serial troponins have been ordered. First troponin is nondetectable. The patient was signed out to Dr. Byrd at 2 PM. Heart score low risk, (Tyron DO,Randolph Trivedi) Departure Disposition: HOME OR SELF CARE Clinical Impression Primary Impression: Chest pain, unspecified Referrals: Ciro URIBE,Burke Hastings (PCP/Family) Rosy URIBE,Rich Maddox Additional Instructions: Please follow up with the home health caregiver provided and your regualr doctor. The only thing we can tell you for sure is that you did not have a heart attack at this time. There are any more things that will need to be evaluated on your heart that the home health caregiver will do. If you develop pain before seeing the home health caregiver, or you have any concerns, please return immediatley to the emergency department. (Carson URIBE,Apolinar Leo) Critical Care Note Critical Care Note Critical Care Time: non-applicable (Carson URIBE,Apolinar Leo)
--- NOTE | 2018-04-23 12:39 | ULTRASOUND REPORT ---
EXAMINATION: US ABDOMEN LIMITED CLINICAL INFORMATION: Right upper quadrant pain. Rule out cholecystitis.. COMPARISON: CT dated 01/20/2018 TECHNIQUE: Real-time imaging of the right upper quadrant abdominal viscera. Examination is slightly limited by bowel gas. FINDINGS: PANCREAS: The imaged portion of the pancreatic body and head are unremarkable. Pancreatic tail is obscured by bowel gas LIVER: Hepatic echogenicity is within normal limits. The liver demonstrates normal size and contour. No focal lesion or intrahepatic biliary duct dilatation. GALLBLADDER: The gallbladder is not identified sonographically. COMMON BILE DUCT: Mildly enlarged for patient's age, measuring 1.3 cm in diameter. This is decreased in size from prior CT (1.5 cm). RIGHT KIDNEY: Multiple small simple cysts are present. The largest of these measures 1.2 cm in diameter. There is a 1.1 cm cyst which contains a echogenic focus dependently, possibly calcification. No calcifications are seen on the prior study. No nephrolithiasis. No hydronephrosis. The kidney measures 10.4 cm in maximum dimension. FREE FLUID: None. IMPRESSION: 1. Gallbladder is not seen sonographically and was not evident on prior CTs. The gallbladder may be surgically or developmentally absent. 2. Chronic dilatation of the common bile duct. It currently measures 1.3 cm in diameter, improved slightly from the prior study. 3. Multiple right renal cysts. No suspicious lesions.
[2018-04-23 14:29] VITALS: BP 144/76
== END 2018-04-23 15:54 ==
LOC: ERH 08:43
PROVIDERS: Emergency Medicine
DX: R07.9 Chest pain, unspecified (principal); R10.9 Unspecified abdominal pain
CPT/HCPCS: 71045; 93005; 93010

== ENCOUNTER 2018-06-30 07:59 | Emergency (ER) | payer OTHER ==
[~2018-06-30 07:59] MED LIST changes: +ESCITALOPRAM OXA5 MG PO; +PREDNISONE5 M1 PO
[2018-06-30 08:30] LABS: ABSOLUTE BASOPHIL COUNT 0 /CUMM (0.0-0.2); ABSOLUTE EOSINOPHIL COUNT 0 /CUMM (0.0-0.7); ABSOLUTE LYMPH COUNT 1.7 /CUMM (1.2-3.4); ABSOLUTE MONOCYTE COUNT 0.4 /CUMM (0.10-0.60); BASOPHIL % 0.5 % (0.0-2.0); EOSINOPHIL % 0.4 % (0-5); GRANULOCYTE % 64.7 % (42.2-75.2); MEAN CORPUSCULAR HGB 29.2 PG (27.0-31.0); MEAN CORPUSCULAR HGB CONC 33.5 G/DL (33.0-37.0); MEAN CORPUSCULAR VOLUME 86.9 FL (81.0-99.0); MEAN PLATELET VOLUME 7.9 FL (7.4-10.4); PLATELET COUNT 224 /CUMM (130-400); RBC DISTRIBUTION WIDTH 13.6 % (11.5-14.5); WHITE BLOOD CELL COUNT 6.2 /CUMM (4.8-10.8)
--- NOTE | 2018-06-30 09:27 | ED CARDIAC/CP/PALPITATIONS ---
See Addendum History of Present Illness General Chief Complaint: General Adult Stated Complaint: SHARP PAIN UNDER L BREAST Source: patient Exam Limitations: no limitations Vital Signs & Intake/Output Vital Signs & Intake/Output Vital Signs Date Time Temp Pulse Resp B/P B/P Pulse O2 O2 Flow FiO2 Mean Ox Delivery Rate 06/30 08 97.6 61 15 140/82 96 Room Air Room Air Allergies Coded Allergies: Influenza Virus Vaccines (NO FLU SHOT DUE TO SULFA ALLERGY PER PT 06/30/18) Sulfa (Sulfonamide Antibiotics) (HIVES 06/30/18) Reconcile Medications Aspirin (Aspirin*) 81 MG TAB.CHEW 81 MG PO DAILY blood thinner Calcium Carbonate 500 MG CALCIUM (1,250 MG) TABLET 600 MG PO BID supplement Carvedilol 12.5 MG TABLET 1 TAB PO BID CHF (Reported) Cyclobenzaprine HCl 5 MG TABLET 1 TAB PO TIDPRN BACK PAIN (Reported) Docusate Sodium (Colace) 100 MG CAPSULE 1 CAP PO BID constipation (Reported) Ergocalciferol (Vitamin D2) (Vitamin D2) 50,000 UNIT CAPSULE 1 CAP PO QW supplement Escitalopram Oxalate 5 MG TABLET 1 TAB PO DAILY MENTAL HEALTH (Reported) Levothyroxine Sodium (Synthroid) 50 MCG TABLET 1 TAB PO DAILY AC THYROID ( Reported) Omeprazole 40 MG CAPSULE.DR 1 CAP PO DAILY GERD (Reported) Prednisone 5 MG TABLET 1 TAB PO DAILY STEROID (Reported) Sacubitril/Valsartan (Entresto 49 MG-51 MG Tablet) 49 MG-51 MG TABLET 1 TAB PO BID CHF (Reported) Simvastatin (Zocor*) 20 MG TABLET 1 TAB PO QPM HYPERLIPIDEMIA (Reported) Tramadol HCl 50 MG TABLET 2 TAB PO DAILY PAIN (Reported) Tramadol HCl 50 MG TABLET 1 TAB PO QPM PAIN (Reported) Triage Note: PT TO ED FOR C/C OF INTERMITTENT 9/10 SHARP PAINS UNDER LEFT BREAST AREA X 1 HOUR WITH SOME SOB. NO ACUTE DISTRESS NOTED. Triage Nurses Notes Reviewed? yes HPI: Patient presents for evaluation of a severe sharp chest pain. Patient states the pain began upon awakening this morning. She states that the pain is a sharp stabbing chest pain located below the left breast in the rib cage. It lasts seconds at a time and occurs every 5-10 minutes. Patient denies any associated rashes. There is no change in the pain or reproduction of the pain with palpation or deep inspiration. Patient denies any known injury. Nothing seems to make the pain feel better. Past History Travel History Traveled to [place] past 21 day No Medical History Any Pertinent Medical History? see below for history Neurological: NEUROPATHY HANDS EENT: NONE Cardiovascular: cardiomyopathy, CHF, hypertension, BRADYCARDIA "IRREGULAR RHYTHM " bifascicular block Respiratory: COPD Gastrointestinal: GERD Hepatic: NONE Renal: NONE Musculoskeletal: OSTEROARTHRITIS DEGENERATIVE DISC DISEASE Psychiatric: NONE Endocrine: THYROIDECTOMY Blood Disorders: NONE Cancer(s): thyroid cancer INSURANCE VERIFICATION CLERK/Reproductive: NONE History of MRSA: No History of VRE: No History of CDIFF: No Surgical History Surgical History: appendectomy, cholecystectomy, , knee replacement ( RIGHT), right thyroid lobe and isthmus ectomy NEURO OPERATION 1941 Psychosocial History Who do you live with Spouse Services at Home None What is your primary language [place]ese Tobacco Use: Quit >30 days ago Family History Hx Contributory? No Review of Systems Review of Systems Constitutional: Reports: no symptoms. EENTM: Reports: no symptoms. Respiratory: Reports: no symptoms. Cardiovascular: Reports: chest pain. GI: Reports: no symptoms. Genitourinary: Reports: no symptoms. Musculoskeletal: Reports: no symptoms. Skin: Reports: no symptoms. Neurological/Psychological: Reports: no symptoms. Hematologic/Endocrine: Reports: no symptoms. Immunologic/Allergic: Reports: no symptoms. All Other Systems: Reviewed and Negative Physical Exam Physical Exam Cardiovascular: SEE BELOW Core Measures ACS in differential dx? No CVA/TIA Diagnosis No Sepsis Present: No Sepsis Focused Exam Completed? No Progress Differential Diagnosis: ACUTE CORONARY SYNDROME, UNSTABLE ANGINA, SHINGLES, INJURY, NEUROPATHIC PAIN, MUSCLE SPASMS Plan of Care: Orders Procedure Date/time Status TROPONIN LEVEL 06/30 08 Complete COMPREHENSIVE METABOLIC PANEL 06/30 801 Complete CBC WITHOUT DIFFERENTIAL 06/30 801 Complete EKG 06/30 08 Active Laboratory Tests 06/30/18 08: Anion Gap 8, Estimated GFR > 60, BUN/Creatinine Ratio 34.3 H, Glucose 96, Calcium 9.0, Total Bilirubin 0.4, AST 15, ALT 23, Alkaline Phosphatase 54, Troponin I < 0.01, Total Protein 6.3, Albumin 3.6, Globulin 2.7, Albumin/ Globulin Ratio 1.3, CBC w Diff NO MAN DIFF REQ, RBC 4.60, MCV 86.9, MCH 29.2, MCHC 33.5, RDW 13.6, MPV 7.9, Gran % 64.7, Lymphocytes % 27.5, Monocytes % 6.9, Eosinophils % 0.4, Basophils % 0.5, Absolute Granulocytes 4.0, Absolute Lymphocytes 1.7, Absolute Monocytes 0.4, Absolute Eosinophils 0, Absolute Basophils 0 Diagnostic Imaging: Discussed w/RAD: Radiology Read. CXR Impression: PATIENT: LIYA BRIGHT PRESENT AGE: 83 PATIENT ACCOUNT NO: [id number] : 37 LOCATION: [facility] ORDERING PHYSICIAN: Abner YAO SERVICE DATE: 06/30/18 EXAM TYPE: RAD - XRY-CHEST XRAY, TWO VIEWS EXAMINATION: XR CHEST CLINICAL INFORMATION: Left-sided chest pain. COMPARISON: Chest radiograph 04/23/2018. TECHNIQUE: 2 views of the chest were obtained. FINDINGS: Lungs are well-expanded. No focal consolidative disease, pleural effusion, or pneumothorax. The cardiac silhouette and upper mediastinal contours are normal. No acute osseous finding. There is severe degenerative arthrosis of both shoulders with superior subluxation of the humeral heads with corresponding narrowing of the acromiohumeral intervals indicating the likelihood of chronic underlying rotator cuff injuries. IMPRESSION: No acute finding. Specifically no evidence of consolidative disease or effusion. DICTATED BY: Alcon Velez MD DATE/TIME DICTATED:06/30/181000 FIELD REPORTER: TORY DATE/TIME TRANSCRIBED:06/30/181000 CONFIDENTIAL, DO NOT COPY WITHOUT APPROPRIATE AUTHORIZATION. <Electronically signed in Other Vendor System> SIGNED BY: Alcon Velez MD 06/30/181005 Initial ED EKG: NSR, RBBB, LPFB Prior EKG: unchanged Comments: 06/30/2018 11:02:08 AM I have updated Liya and her family on test results. She has declined a prescription for an anti-inflammatory. She states she is taking enough medications as it is. Given the characteristics of her pain and the unremarkable evaluation, I have discussed the possibilities of neuropathic pain and muscle spasms. At this point the patient commented that she did trip injuring her right ankle and feels she may have pulled a muscle during that episode. Departure Departure Disposition: HOME OR SELF CARE Condition: Stable Clinical Impression Primary Impression: Intercostal pain Referrals: Ciro URIBE,Burke Hastings (PCP/Family) Additional Instructions: Rest, no exertion or heavy lifting. [id number]-[id number] pain medication if necessary. Follow-up with your primary care physician in 3-5 days if not improving. Return if any concerns or sudden worsening. Please note that there might be incidental findings in your evaluation that are unrelated to the current emergency department visit. Please notify your primary care doctor about this emergency department visit in order to obtain and review all of the testing performed so that these incidental findings can be monitored as needed. If you had an x-ray performed, please understand that some fractures or other findings may not be seen on the initial set of x-rays. If your symptoms persist you might need a repeat set of x-rays to check for such a fracture. If you had a laceration evaluated, please understand that foreign bodies such as glass or wood may not be visible to the naked eye or on plain x-rays. If the wound becomes red, swollen, increasingly more painful or if there is any drainage from the wound, please have it reevaluated by a physician for the possibility of a retained foreign body. If you're unable to follow up as outlined in the discharge instructions please return to the emergency department. Thank you for choosing the [facility] Emergency Department for your care. It was a pleasure to serve you today. Randolph Yost M.D. [facility] Departure Forms: Customer Survey General Discharge Information Critical Care Note Critical Care Note Critical Care Time: non-applicable
--- NOTE | 2018-06-30 10:06 | RADIOLOGY REPORT ---
EXAMINATION: XR CHEST CLINICAL INFORMATION: Left-sided chest pain. COMPARISON: Chest radiograph 04/23/2018. TECHNIQUE: 2 views of the chest were obtained. FINDINGS: Lungs are well-expanded. No focal consolidative disease, pleural effusion, or pneumothorax. The cardiac silhouette and upper mediastinal contours are normal. No acute osseous finding. There is severe degenerative arthrosis of both shoulders with superior subluxation of the humeral heads with corresponding narrowing of the acromiohumeral intervals indicating the likelihood of chronic underlying rotator cuff injuries. IMPRESSION: No acute finding. Specifically no evidence of consolidative disease or effusion.
[2018-06-30 11:16] VITALS: BP 135/71
== END 2018-06-30 11:21 ==
LOC: ERH 07:59
PROVIDERS: Physician Assistant Medical
DX: R07.82 Intercostal pain (principal); R07.89 Other chest pain; I42.9 Cardiomyopathy, unspecified; I50.9 Heart failure, unspecified; R00.1 Bradycardia, unspecified; J44.9 Chronic obstructive pulmonary disease, unspecified; Z87.891 Personal history of nicotine dependence
CPT/HCPCS: 71046; 93005; 93010